=== PATIENT | male | born 1955 | race Caucasian/White ===

== ENCOUNTER 2024-03-14 09:53 | Outpatient (AMB) | payer MEDICARE, SELFPAY ==
[2024-03-14 10:09] VITALS: BP 134/78; PULSE 75; O2SAT 98; BMI 28.1
--- NOTE | 2024-03-14 10:09 | A.OFFPC_ITS ---
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 PMHx: HLD, OA, Vit D deficiency, Basal Cell CA, Squamous cell CA skin Goes to [facility] in [place] Migraines, BPH (last?PSA?3?days?ago?was?3.0) Urology at [facility], Tubular Adenoma Colon last Colonoscopy a few yrs ago and due in about 2 yrs., Diverticulosis. SurgHx:??Excision?of?nevus?on?face,?Mohs?surgery?on?nose,?inguinal?hernia?repair ?bilateral?with?mesh,?vasectomy,?R hip?replacement FHx:: Dad: CAD. Brother Seizure d.o., Sister DM, CAD. Brother bladder CA. Sister vocal cord CA SocHx: Quit cigs 30 yrs ago. EtOH None. No drugs PFSH Medical History (Updated 03/14/24 @ 10:50 by Julien Seo) Arthritis Prostate troubles Skin cancer Surgical History (Updated 03/14/24 @ 10:22 by Jennifer Angulo [facility]) History of hip surgery S/P hernia surgery Family History (Updated 05/06/24 @ 10:26 by Jennifer [facility] Mother Lung cancer Father High blood pressure High cholesterol Cardiovascular disease Sister High blood pressure High cholesterol Diabetes Cardiovascular disease Thyroid disease Alcoholism Lung cancer Vocal cord cancer Brother Bladder cancer Social History Household Members: Spouse Household Members Other:: mother in law Both parents involved: No Caregiver staying overnight: No Housing: House Are you a primary primary care provider to a significant other at home: No Do you presently have visiting nurse or other home services: No Alcohol intake: never Patient Tobacco Use Status: Former Tobacco user Tobacco use type: Cigarette e-Cigarette/Vaping Use: Never Used Special tenzin needs: Yes service: No Current occupational status: retired Cognitive needs: No Hearing needs: No Vision needs: Yes (Patient wears glasses) Questionnaire PHQ-9 Over the last 2 weeks, how often have you been bothered by any of the following problems? 1. Little interest or pleasure in doing things: not at all 2. Feeling down, depressed, or hopeless: not at all 3. Trouble falling or staying asleep, or sleeping too much: not at all 4. Feeling tired or having little energy: not at all 5. Poor appetite or overeating: not at all 6. Feeling bad about yourself - or that you are a failure or have let yourself or your family down: not at all 7. Trouble concentrating on things, such as reading the newspaper or watching television: not at all 8. Moving or speaking so slowly that other people could have noticed. Or the opposite - being so fidgety or restless that you have been moving around a lot more than usual: not at all 9. Thoughts that you would be better off or of hurting yourself in some way: not at all Total score: 0 Depression Screening Interpretation: Negative Depression Screening Done: Yes 80822 - PHQ-9 Billing: Yes Source: Developed by Drs. Darien Schwartz, Michela Napier, Hu Moreland and colleagues, with an educational kamron from [employer]. Thrive Questionnaire Date Thrive assessed: 03/14/24 I am a: Patient What is your living situation today?: I have a steady place to live Within the past 12 months, did the food you bought not last and you didn't have the money to get more?: Never true Within the past 12 months, did you worry whether your food would run out before you got money to buy more?: Never true Do you have trouble paying for medicines?: No Do you have trouble getting transportation to medical appointments?: No Do you have trouble paying your heating and electricity bill?: No Do you have trouble taking care of your child, family member or friend?: No Do you have trouble with day-to-day activities such as bathing, preparing meals, shopping, managing finances, etc.?: No Are you currently unemployed and looking for a job?: No Are you interested in more education?: No THRIVE Score: 0 AUDIT C Alcohol Use Questionnaire (AUDIT-C) 1. How often do you have a drink containing alcohol?: Never 3. How often do you have six or more drinks on one occasion?: Never Total Score: 0 Review of Systems Const Denies chills, Denies fatigue, Denies fever(s), Denies headache(s) and Denies weakness ENT Details: Difficulty swallowing cold food Denies dizziness and Denies headache(s) Card Denies chest pain, Denies lightheadedness, Denies dyspnea and Denies other (Palpitations) Resp Denies cough, Denies dyspnea, Denies wheezing and Denies other ( shortness of breath) Musc Denies numbness and Denies tingling Neuro Denies dizziness, Denies headache(s), Denies numbness, Denies tingling, Denies paresthesias and Denies weakness Psych Denies anxiety and Denies depression Endo Denies fatigue Aller/Immun Denies wheezing Physical exam (Primary Care) BMI result Body Mass Index 28.1 Tobacco/Smoking Status: Tobacco use Status Tobacco use date assessed 03/14/24 03/14/24 10:19 Patient Tobacco Use Status Former Tobacco user 03/14/24 10:19 Tobacco use type Cigarette 03/14/24 10:19 e-Cigarette/Vaping Use Never Used 03/14/24 10:19 PHQ-9: PHQ-9 Score PHQ-9: Total score 0 03/14/24 10:19 Depression Screening Interpretation: Negative Thrive Assessment: Date of Thrive Assessment Date Thrive assessed 03/14/24 03/14/24 10:19 Const General: no acute distress and well developed Nutritional Appearance: well nourished Orientation/consciousness: patient oriented x3 HENMT Head: Yes normocephalic and Yes atraumatic Eyes General: appearance normal, both eyes and all related structures Pupils: Equal, round and reactive pupils present EOM: EOMs intact bilaterally Resp Effort & Inspection: normal respiratory effort Auscultation: clear to auscultation bilaterally Cardio Rate: regular rate Rhythm: regular rhythm Heart sounds: S1 normal heart sound present, S2 normal heart sound present, no gallops, no murmurs and no rubs Neuro General: patient oriented x3 and gait normal Cranial nerves: Yes Equal, round and reactive pupils present Psych Affect: normal affect Assessment and Plan Assessment & Plan (1) Difficulty swallowing: Code(s): R13.10 - Dysphagia, unspecified (2) Hyperlipidemia: Code(s): E78.5 - Hyperlipidemia, unspecified (3) Vitamin D deficiency: Code(s): E55.9 - Vitamin D deficiency, unspecified (4) Migraines: Code(s): G43.909 - Migraine, unspecified, not intractable, without status migrainosus (5) History of skin cancer: Code(s): Z85.828 - Personal history of other malignant neoplasm of skin (6) Lump on finger: Code(s): R22.30 - Localized swelling, mass and lump, unspecified upper limb (7) BPH (benign prostatic hyperplasia): Code(s): N40.0 - Benign prostatic hyperplasia without lower urinary tract symptoms (8) Tubular adenoma of colon: Code(s): D12.6 - Benign neoplasm of colon, unspecified (9) Diverticulitis: Code(s): K57.92 - Diverticulitis of intestine, part unspecified, without perforation or abscess without bleeding Orders: Orders Complete Blood Count Auto Diff Today Z00.00 - Encounter for general adult medical examination without abnormal findings TSH reflex Free T4 Today Z00.00 - Encounter for general adult medical examinat ion without abnormal findings UA and rflx microscopic Today Z00.00 - Encounter for general adult medical examination without abnormal findings Vitamin D 25-OH Total Today E55.9 - Vitamin D deficiency, unspecified [place] barium swallow modified Today R13.10 - Dysphagia, unspecified XR hand LT min 3V Today R22.30 - Localized swelling, mass and lump, unspecified upper limb Comprehensive [place]. Panel Fast Today Z00.00 - Encounter for general adult medical examination without abnormal findings Microalbumin, Random (w Creat) Today I10 - Essential (primary) hypertension Lipid Panel Today Z00.00 - Encounter for general adult medical examination without abnormal findings Prostate Specific Antigen Scr Today Z12.5 - Encounter for screening for malignant neoplasm of prostate Coding Level of Care Code New Pt Level 4 (52058) Diagnoses Difficulty swallowing R13.10 Hyperlipidemia E78.5 Vitamin D deficiency E55.9 Migraines G43.909 History of skin cancer Z85.828 Lump on finger R22.30 BPH (benign prostatic hyperplasia) N40.0 Tubular adenoma of colon D12.6 Diverticulitis K57.92
== END 2024-03-14 10:56 | disposition home or self-care (01) ==
PROVIDERS: PCP Family Medicine; Visit Provider Family Medicine
DX: R13.10 Dysphagia, unspecified (principal); E78.5 Hyperlipidemia, unspecified; E55.9 Vitamin D deficiency, unspecified; G43.909 Migraine, unspecified, not intractable, without status migrainosus; Z85.828 Personal history of other malignant neoplasm of skin; R22.30 Localized swelling, mass and lump, unspecified upper limb; N40.0 Benign prostatic hyperplasia without lower urinary tract symptoms; D12.6 Benign neoplasm of colon, unspecified; K57.92 Diverticulitis of intestine, part unspecified, without perforation or abscess without bleeding
CPT/HCPCS: 99204

== ENCOUNTER 2024-06-16 08:29 | Outpatient (AMB) | payer MEDICARE, SELFPAY ==
--- NOTE | 2024-06-16 08:47 | A.OFFPC_ITS ---
Vital Signs 06/16/24 08:54 Height 6 ft Weight 203 lb BMI 27.5 BP 106/60 Blood Pressure Location Rt brachial Position Sitting Respiration 18 Pulse 58 Pulse Source Pulse Oximeter Temp 98 F Temp Source Tympanic Pulse Oximetry (%) 95 Oxygen Delivery Method Room Air Intake Visit Reasons: Extended exam with f/u labs and health maint Intake Note: annual exam lab follow up Allergies codeine Adverse Reaction (Mild, Verified 06/16/24 08:49) Vomiting Tobacco use date assessed: 06/16/24 Fall risk assessment: No Falls in past year Dental Screening Dental Screen Date: 06/16/24 Did you have a dental visit in the last 12 months?: Yes Did you have a dental problem in the last 6 months where you did not have access to dental care?: No Was dental information given to patient?: Patient has dentist HPI Extended exam with f/u labs and health maint HPI Details 69 y/o male presents for an extended exa m with f/u labs and health maintenance. Labs drawn 03/21/24. Reviewed labs with pt. TC 204. Triglycerides 100. HDL 49. LDL 137. Had complaints of difficulty swallowing. 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 [facility] Medical History (Updated 06/16/24 @ 09:28 by César Gordon MD) Arthritis Prostate troubles Skin cancer Surgical History (Updated 03/14/24 @ 10:22 by Jennifer Angulo CMA) History of hip surgery S/P hernia surgery Family History (Updated 03/14/24 @ 10:26 by Jennifer Angulo CMA) Mother Lung cancer Father High blood pressure High cholesterol Cardiovascular disease Sister High blood pressure High cholesterol Diabetes Cardiovascular disease Thyroid disease Alcoholism Lung cancer Vocal cord cancer Brother Bladder cancer Social History (Updated 06/16/24 @ 08:50 by Laura Farris) Household Members: Spouse Household Members Other:: mother in law Both parents involved: No Caregiver staying overnight: No Housing: House Are you a primary care associate to a significant other at home: No Do you presently have visiting nurse or other home services: No Alcohol intake: never Patient Tobacco Use Status: Former Tobacco user Tobacco use type: Cigarette e-Cigarette/Vaping Use: Never Used Special tenzin needs: Yes service: No Current occupational status: retired Cognitive needs: No Hearing needs: No Vision needs: Yes (Patient wears glasses) Questionnaire PHQ-9 Over the last 2 weeks, how often have you been bothered by any of the following problems? 1. Little interest or pleasure in doing things: not at all 2. Feeling down, depressed, or hopeless: not at all 3. Trouble falling or staying asleep, or sleeping too much: not at all 4. Feeling tired or having little energy: not at all 5. Poor appetite or overeating: not at all 6. Feeling bad about yourself - or that you are a failure or have let yourself or your family down: not at all 7. Trouble concentrating on things, such as reading the newspaper or watching television: not at all 8. Moving or speaking so slowly that other people could have noticed. Or the opposite - being so fidgety or restless that you have been moving around a lot more than usual: not at all 9. Thoughts that you would be better off or of hurting yourself in some way: not at all Total score: 0 Depression Screening Interpretation: Negative Depression Screening Done: Yes 08555 - PHQ-9 Billing: Yes Source: Developed by Drs. Darien Schwartz, Michela Napier, Hu Moreland and colleagues, with an educational kamron from [employer]. Thrive Questionnaire Date Thrive assessed: 06/16/24 I am a: Patient What is your living situation today?: I have a steady place to live Within the past 12 months, did the food you bought not last and you didn't have the money to get more?: Never true Within the past 12 months, did you worry whether your food would run out before you got money to buy more?: Never true Do you have trouble paying for medicines?: No Do you have trouble getting transportation to medical appointments?: No Do you have trouble paying your heating and electricity bill?: No Do you have trouble taking care of your child, family member or friend?: No Do you have trouble with day-to-day activities such as bathing, preparing meals, shopping, managing finances, etc.?: No Are you currently unemployed and looking for a job?: No Are you interested in more education?: No Please select the resources that you would like help with: None Currently or been in a relationship where the following occur: No concerns reported THRIVE Score: 0 AUDIT C Alcohol Use Questionnaire (AUDIT-C) 1. How often do you have a drink containing alcohol?: Never 3. How often do you have six or more drinks on one occasion?: Never Total Score: 0 Score Reviewed/Action Taken: Yes MEENA-7 AMB Questionnaire MEENA-7 Date MEENA - 7 assessed: 06/16/24 Feeling nervous, anxious, or on edge: 0 = Not at all Not being able to stop or control worryin = Not at all Worrying too much about different things: 0 = Not at all Trouble relaxin = Not at all Being so restless that it is hard to sit still: 0 = Not at all Becoming easily annoyed or irritable: 0 = Not at all Feeling afraid as if something awful might happen: 0 = Not at all Total MEENA-7 score (0-4 normal; 5-9 mild; 10-14 moderate; 15-21 severe): 0 Source: Developed by Drs. Darien Schwartz, Michela Napier, Hu Moreland and colleagues, with an educational kamron from [employer]. MEENA-7 Assessment Billing MEENA-7 Assessment Tool: MEENA-7 Assessment 32786 Review of Systems Const Denies chills, Denies fatigue, Denies fever(s), Denies headache(s) and Denies we akness Eyes Denies change in vision ENT Denies dizziness, Denies headache(s), Denies hearing loss, Denies nasal congestion, Denies sinus pain, Denies sinus pressure and Denies sore throat Card Denies chest pain, Denies lightheadedness, Denies dyspnea and Denies other (palpitations) Resp Denies cough, Denies dyspnea and Denies wheezing GI Denies abdominal pain, Denies melena, Denies hematochezia, Denies change in bowel habits, Denies dyspepsia and Denies nausea Denies hematuria and Denies dysuria Musc Denies abnormal gait, Denies myalgias, Denies arthralgias, Denies numbness and Denies tingling Skin/Breast Denies rash, Denies unusual bruising and Denies wounds Neuro Denies abnormal gait, Denies dizziness, Denies headache(s), Denies memory loss, Denies numbness, Denies Sensory deficit (Neuro), Denies tingling and Denies weakness Psych Denies anxiety, Denies depression and Denies memory loss Endo Denies cold intolerance, Denies fatigue, Denies heat intolerance, Denies polydipsia and Denies polyuria Cm/Lymph Denies easy bleeding and Denies easy bruising Aller/Immun Denies wheezing Physical exam (Primary Care) Vital Signs: Last Vital Signs Temp 98 F 06/16/24 08:54 Pulse 58 06/16/24 08:54 Resp 18 06/16/24 08:54 BP 106/60 06/16/24 08:54 Pulse Ox 95 06/16/24 08:54 Oxygen Delivery Method Room Air 06/16/24 08:54 BMI result Body Mass Index 27.5 Tobacco/Smoking Status: Tobacco use Status Tobacco use date assessed 06/16/24 06/16/24 08:53 Patient Tobacco Use Status Former Tobacco user 06/16/24 08:50 Tobacco use type Cigarette 06/16/24 08:50 e-Cigarette/Vaping Use Never Used 06/16/24 08:50 PHQ-9: PHQ-9 Score PHQ-9: Total score 0 06/16/24 08:55 Depression Screening Interpretation: Negative Thrive Assessment: Date of Thrive Assessment Date Thrive assessed 06/16/24 06/16/24 08:53 Currently or been in a relationship where the following occur: No concerns reported Const General: no acute distress, well developed, alert and awake Nutritional Appearance: well nourished Orientation/consciousness: patient oriented x3 HENMT Head: Yes normocephalic and Yes atraumatic Ears: hearing grossly normal bilaterally and TM's normal bilaterally General nose exam: Normal external nose present and Normal nares present Mouth: Normal oral and palatal mucosa present and moist mucous membranes Teeth and gingiva: dentition normal Throat: Yes posterior oropharynx normal Eyes General: appearance normal, both eyes and all related structures Pupils: Equal, round and reactive pupils present and Pupil accommodation reflex normal EOM: EOMs intact bilaterally Neck Neck: Yes normal visual inspection, Yes no lymphadenopathy and Yes trachea midline Thyroid: Thyroid normal Carotids: no bruits Lymphatic: no lymphadenopathy noted Chest Chest palpation & inspection: normal inspection of the chest Resp Effort & Inspection: normal respiratory effort Auscultation: clear to auscultation bilaterally Cardio Rate: regular rate Rhythm: regular rhythm Heart sounds: S1 normal heart sound present, S2 normal heart sound present, no gallops, no murmurs and no rubs Bruits: no abdominal aortic bruits and no carotid bruits GI Palpation (GI): No Abdominal aortic bruit present, Soft to palpation, nontender, No hepatosplenomegaly present and No Rebound tenderness present Auscultation: normal bowel sounds General: Yes no CVA tenderness Back/Spine/Pelvis Back: no CVA tenderness Cervical Spine: cervical ROM normal and No Cervical spine tenderness Thoracic/Lumbar Spine: thoraco-lumbar ROM normal, No pain with thoraco-lumbar ROM, No thoracic spinal tenderness and No lumbar spinal tenderness Skin Lesions: no lesions Rashes: no rashes Trauma: no lacerations or abrasions Wounds: no wounds Nails: normal Neuro General: patient oriented x3 Cranial nerves: Yes Equal, round and reactive pupils present Cognition (Neuro): normal cognition Gait exam (Neuro): Normal gait present Motor exam (neuro): 5/5 motor strength present throughout Sensory Exam: No Sensory deficit (Neuro) Deep tendon reflexes (DTR's): Right patellar reflex intensity grade: 2+ and Left patellar reflex intensity grade: 2+ Extrem General: Yes normal to inspection and No edema Psych Appearance: grossly normal Affect: normal affect Attitude: cooperative Thought process: Normal thought process present Assessment and Plan Assessment & Plan (1) Elevated LDL cholesterol level: Code(s): E78.00 - Pure hypercholesterolemia, unspecified Plan: Elevated?LDL?cholesterol.??Goal?is?less?than?100 He?will?work?on?lifestyle?changes.??Says?he?is?already?eating?a?diet?low?in?satu rated?fats?and?cholesterol?but?has?not?been?exercising?much. Continue?diet?low?in?saturated?fats?and?cholesterol?and?try?to?increase?activity ?and?exercise Will?repeat?in?a?few?months?and?discuss?with?patient (2) Lump on finger: Code(s): R22.30 - Localized swelling, mass and lump, unspecified upper limb Plan: Lump?on?3rd?finger?of?left?hand - patient?had?x- ray?but?I?do?not?have?the?results Will?request?results?and?call?patient?of?action?is?required.??Otherwise?we?can?f ollow-up?at?his?next?visit (3) Difficulty swallowing: Code(s): R13.10 - Dysphagia, unspecified Plan: Ongoing?difficulty?swallowing?certain?liquids Modified?barium?swall ow?cervical?shows?osteophyte?which?is?likely?causing?mass?effect?on?esophagus Referred?to?ENT (4) Screening for colon cancer: Code(s): Z12.11 - Encounter for screening for malignant neoplasm of colon Plan: Patient?says?he?has?drafter electrical in?[place] Unsure?when?or?exactly?where. He?will?send?us?a?message?through?the?portal?and?we?can?request?the?results (5) Screening for prostate cancer: Code(s): Z12.5 - Encounter for screening for malignant neoplasm of prostate Plan: PSA?at?upper?range?of?normal He?has?a?urologist?who?feels?that?his?prostate?appears?normal?for?age We?can?continue?to?monitor?and?he?can?follow-up?with?Urology (6) Adult general medical exam: Code(s): Z00.00 - Encounter for general adult medical examination without abnormal findings Plan: 69-year-old?male?presents?for?an?extended?exam Encouraged?healthy?diet?active?lifestyle?and?exercise Orders: Orders Lipid Panel Today E78.00 - Pure hypercholesterolemia, unspecified, Z00.00 - Encounter for general adult medical examination without abnormal findings Comprehensive [place]. Panel Fast Today E78.00 - Pure hypercholesterolemia, unspecified, Z00.00 - Encounter for general adult medical examination without abnormal findings Referrals Ear/Nose/Throat Referral M25.78 - Osteophyte, vertebrae, R13.10 - Dysphagia, unspecified Coding Level of Care Code Est Pt Level 4 (60945) Diagnoses Elevated LDL cholesterol level E78.00 Lump on finger R22.30 Difficulty swallowing R13.10 Screening for colon cancer Z12.11 Screening for prostate cancer Z12.5 Adult general medical exam Z00.00 Additional Codes MEENA-7 Assessment Billing - MEENA-7 Assessment Tool: MEENA-7 Assessment 28220 ([id number])
[2024-06-16 08:54] VITALS: BP 106/60; PULSE 58; RESP 18; TEMP 36.6; O2SAT 95; BMI 27.5
== END 2024-06-16 09:30 | disposition home or self-care (01) ==
PROVIDERS: PCP Family Medicine; Visit Provider Family Medicine
DX: Z00.00 Encounter for general adult medical examination without abnormal findings (principal); E78.00 Pure hypercholesterolemia, unspecified; R22.30 Localized swelling, mass and lump, unspecified upper limb; R13.10 Dysphagia, unspecified; Z12.11 Encounter for screening for malignant neoplasm of colon; Z12.5 Encounter for screening for malignant neoplasm of prostate
CPT/HCPCS: 99397

== ENCOUNTER 2024-09-13 08:11 | Outpatient (REF) | payer MEDICARE, SELFPAY ==
[2024-09-13 11:13] LABS: MANUAL DIFF FLAG NO
[2024-09-13 11:21] LABS: Basophils Absolute Auto 0.1 X10*3/uL (0.0-0.2); Basophils Percent Auto 1.3 % (0-2); Eosinophils Absolute Auto 0.4 X10*3/uL (0.0-0.4); Eosinophils Percent Auto 7.6 % (0-4); Hematocrit 48.1 % (42.0-52.0); Hemoglobin 15.5 g/dl (14.0-18.0); Imm Gran Abs Auto 0.02 X10*3/uL (0.00-0.03); Imm Gran Pct Auto 0.4 % (0.0-0.4); Lymphocytes Absolute Auto 1.6 X10*3/uL (1.2-4.9); Lymphocytes Percent Auto 33.1 % (20-40); Mean Corpuscular HGB Conc 32.2 g/dl (31.0-36.0); Mean Corpuscular Hemoglobin 28.2 pg (27.0-33.0); Mean Corpuscular Volume 87.5 fL (80.0-98.0); Mean Platelet Volume 10.8 fL (9.4-12.4); Monocytes Absolute Auto 0.6 X10*3/uL (0.1-1.2); Monocytes Percent Auto 12.7 % (2-11); Neutrophils Absolute Auto 2.1 x10*3/uL (2.0-8.3); Neutrophils Percent Auto 44.9 % (45-73); Platelet Count 214 X10*3/uL (160-400); Red Cell Distribution Width 13.8 % (11.0-16.0); White Blood Count 4.7 X10*3/uL (4.8-10.8)
[2024-09-13 11:29] LABS: Appearance Urine Clear; Color Urine Yellow; Glucose Urine UA Negative (Negative); Leukocyte Esterase Urine Negative (Negative); Nitrite Urine Negative (Negative); PH 6.5 (5.0-9.0); Specific Gravity - Urine 1.015 (1.005-1.025); Urine Blood Negative (Negative); Urine Ketones Negative (Negative); Urine Protein Negative (Neg-Trace)
[2024-09-13 11:59] LABS: Alanine Aminotransferase 19 U/L (0-40); Albumin Level 4.1 g/dL (3.5-5.0); Alkaline Phosphatase 67 U/L (39-117); Anion Gap 12 (12-20); Aspartate Amino Transferase 28 U/L (5-37); Bilirubin Total 0.6 mg/dL (0.0-1.0); Blood Urea Nitrogen 12 mg/dL (9-16); Calcium 9.7 mg/dL (8.4-10.2); Carbon Dioxide 28 mmol/L (22-29); Chloride 105 mmol/L (96-108); Cholesterol 182 mg/dL (<200); Estimated Glomerular Filt Rate > 60; Glucose Fasting 101 mg/dL (60-99); HDL Cholesterol 52 mg/dL (>40); LDL Cholesterol Calculated 119 mg/dL (<100); Potassium 4.8 mmol/L (3.3-5.1); Sodium 140 mmol/L (135-145); Total Protein 6.9 g/dL (6.5-8.0); Triglycerides 57 mg/dL (<150)
[2024-09-13 12:17] LABS: TSH reflex Free T4 1.79 uIU/mL (0.32-4.0); Vitamin D 25-OH Total 67.6 ng/mL (>30)
[2024-09-13 14:03] LABS: Microalbumin Urine < 5.0 mg/L
== END 2024-09-13 08:12 | disposition home or self-care (01) ==
LOC: HO.WFDLDS 08:11
PROVIDERS: Visit Provider Family Medicine
DX: Z00.00 Encounter for general adult medical examination without abnormal findings (principal); Z12.5 Encounter for screening for malignant neoplasm of prostate; E55.9 Vitamin D deficiency, unspecified; I10 Essential (primary) hypertension
CPT/HCPCS: 36415; 80053; 80061; 81003; 82043; 82306; 82570; 84153; 84443; 85025

== ENCOUNTER 2024-09-20 08:37 | Outpatient (AMB) | payer MEDICARE, SELFPAY ==
--- NOTE | 2024-09-20 08:58 | MHC.PC.OV ---
Vital Signs 09/20/24 09:00 Height 6 ft Weight 205 lb 2 oz BMI 27.8 BP 112/70 Blood Pressure Location Lt brachial Position Sitting Respiration 12 Pulse 58 Pulse Source Pulse Oximeter Temp 97.8 F Temp Source Oral Pulse Oximetry (%) 97 Oxygen Delivery Method Room Air Intake Visit Reasons: f/u HLD Intake Note: follow up on labs Allergies codeine Adverse Reaction (Mild, Verified 09/20/24 08:59) Vomiting Tobacco use date assessed: 06/16/24 Dental Screening Dental Screen Date: 06/16/24 HPI f/u HLD HPI Details 69 y/o male presents to f/u HLD. Labs drawn 09/13/24. Reviewed labs with pt. Elevated fasting glucose of 101. Triglycerides 57. TC 182. LDL 119. HDL 52. PSA 3.40. PFSH Medical History (Updated 09/20/24 @ 09:21 by Julien Seo) Arthritis Prostate troubles Skin cancer Surgical History (Updated 03/14/24 @ 10:22 by Jennifer Angulo CMA) History of hip surgery S/P hernia surgery Family History (Updated 03/14/24 @ 10:26 by Jennifer Angulo CMA) Mother Lung cancer Father High blood pressure High cholesterol Cardiovascular disease Sister High blood pressure High cholesterol Diabetes Cardiovascular disease Thyroid disease Alcoholism Lung cancer Vocal cord cancer Brother Bladder cancer Social History (Updated 06/16/24 @ 08:50 by Laura Farris [facility]) Household Members: Spouse Household Members Other:: mother in law Both parents involved: No Caregiver staying overnight: No Housing: House Are you a primary home care scheduler to a significant other at home: No Do you presently have visiting nurse or other home services: No Alcohol intake: never Patient Tobacco Use Status: Former Tobacco user Tobacco use type: Cigarette e-Cigarette/Vaping Use: Never Used Special tenzin needs: Yes service: No Current occupational status: retired Cognitive needs: No Hearing needs: No Vision needs: Yes (Patient wears glasses) Questionnaire PHQ-9 Over the last 2 weeks, how often have you been bothered by any of the following problems? 1. Little interest or pleasure in doing things: not at all 2. Feeling down, depressed, or hopeless: not at all 3. Trouble falling or staying asleep, or sleeping too much: not at all 4. Feeling tired or having little energy: not at all 5. Poor appetite or overeating: not at all 6. Feeling bad about yourself - or that you are a failure or have let yourself or your family down: not at all 7. Trouble concentrating on things, such as reading the newspaper or watching television: not at all 8. Moving or speaking so slowly that other people could have noticed. Or the opposite - being so fidgety or restless that you have been moving around a lot more than usual: not at all 9. Thoughts that you would be better off or of hurting yourself in some way: not at all Total score: 0 Source: Developed by Drs. Darien Schwartz, Michela Napier, Hu Moreland and colleagues, with an educational kamron from [employer]. Thrive Questionnaire Date Thrive assessed: 09/17/24 I am a: Patient What is your living situation today?: I have a steady place to live Within the past 12 months, did the food you bought not last and you didn't have the money to get more?: Never true Within the past 12 months, did you worry whether your food would run out before you got money to buy more?: Never true Do you have trouble paying for medicines?: No Do you have trouble getting transportation to medical appointments?: No Do you have trouble paying your heating and electricity bill?: No Do you have trouble taking care of your child, family member or friend?: No Do you have trouble with day-to-day activities such as bathing, preparing meals, shopping, managing finances, etc.?: No Are you currently unemployed and looking for a job?: No Are you interested in more education?: No Please select the resources that you would like help with: None Currently or been in a relationship where the following occur: No concerns reported THRIVE Score: 0 AUDIT C Alcohol Use Questionnaire (AUDIT-C) 1. How often do you have a drink containing alcohol?: Never Total Score: 0 MEENA-7 AMB Questionnaire MEENA-7 Date MEENA - 7 assessed: 06/16/24 Feeling nervous, anxious, or on edge: 0 = Not at all Not being able to stop or control worryin = Not at all Worrying too much about different things: 0 = Not at all Trouble relaxin = Not at all Being so restless that it is hard to sit still: 0 = Not at all Becoming easily annoyed or irritable: 0 = Not at all Feeling afraid as if something awful might happen: 0 = Not at all Total MEENA-7 score (0-4 normal; 5-9 mild; 10-14 moderate; 15-21 severe): 0 Source: Developed by Drs. Darien Schwartz, Michela Napier, Hu Moreland and colleagues, with an educational kamron from [employer]. Review of Systems Const Denies chills, Denies fatigue, Denies fever(s), Denies headache(s) and Denies weakness ENT Denies dizziness and Denies headache(s) Card Denies dyspnea Resp Denies cough, Denies dyspnea, Denies wheezing and Denies other (shortness of breath) Musc Denies numbness and Denies tingling Neuro Denies dizziness, Denies headache(s), Denies numbness, Denies tingling and Denies weakness Psych Denies anxiety and Denies depression Endo Denies fatigue Aller/Immun Denies wheezing Physical exam (Primary Care) Vital Signs: Last Vital Signs Temp 97.8 F 09/20/24 09:00 Pulse 58 09/20/24 09:00 Resp 12 09/20/24 09:00 BP 112/70 09/20/24 09:00 Pulse Ox 97 09/20/24 09:00 Oxygen Delivery Method Room Air 09/20/24 09:00 BMI result Body Mass Index 27.8 Tobacco/Smoking Status: Tobacco use Status Tobacco use date assessed 06/16/24 09/20/24 09:01 Patient Tobacco Use Status Former Tobacco user 09/20/24 09:01 Tobacco use type Cigarette 09/20/24 09:01 e-Cigarette/Vaping Use Never Used 09/20/24 09:01 PHQ-9: PHQ-9 Score PHQ-9: Total score 0 09/20/24 09:18 Thrive Assessment: Date of Thrive Assessment Date Thrive assessed 09/17/24 09/20/24 09:01 Currently or been in a relationship where the following occur: No concerns reported Const General: well developed; No acute distress Nutritional Appearance: well nourished Orientation/consciousness: patient oriented x3 HENMT Head: Yes normocephalic and Yes atraumatic Eyes General: appearance normal, both eyes and all related structures Pupils: Equal, round and reactive pupils present EOM: EOMs intact bilaterally Resp Effort & Inspection: normal respiratory effort Auscultation: clear to auscultation bilaterally Cardio Rate: regular rate Rhythm: regular rhythm Heart sounds: S1 normal heart sound present, S2 normal heart sound present, no gallops, no murmurs and no rubs Neuro General: patient oriented x3 and gait normal Cranial nerves: Yes Equal, round and reactive pupils present Psych Affect: normal affect Coding Level of Care Code Est Pt Level 4 (58160) Diagnoses Elevated fasting glucose R73.01 Hyperlipidemia E78.5 Screening for colon cancer Z12.11 Difficulty swallowing R13.10 Assessment & Plan Assessment & Plan (1) Elevated fasting glucose: Code(s): R73.01 - Impaired fasting glucose Category: Medical Plan: Mildly?elevated?fasting?blood?sugar Encouraged?a?diet?lower?in?starches?and?about?5?lb?weight?loss?and?exercise Will?recheck?labs?as?well?as?an?A1c?with?his?next?lab?draw (2) Hyperlipidemia: Code(s): E78.5 - Hyperlipidemia, unspecified Category: Medical Plan: Lipids?are?improved?though?still?elevated Encouraged?diet?lower?in?saturated?fats?and?cholesterol Encouraged?exercise?and?another?5?lb?weight?loss (3) Screening for colon cancer: Code(s): Z12.11 - Encounter for screening for malignant neoplasm of colon Category: Medical Plan: Last?colonoscopy?in?2018?with?.??Recommended?5?year?follow-up?and?I?referred?him?back Patient?says?he?already?has?an?appointment?with?them?in?February (4) Difficulty swallowing: Code(s): R13.10 - Dysphagia, unspecified Category: Medical Plan: Patient?has?an?appointment?with?ENT?and?they?were?unable?to?see?him?sooner?than?December.??He?will?be?back?in?February?2024. Patient?says?the?globus?sensation?is?not?worsening?at?this?time. He?could?also?let?me?know?if?it?is?worsening?and?I?will?make?a?referral?down?in?[place]?while?he?is?there. Orders: Orders Lipid Panel Today E78.00 - Pure hypercholesterolemia, unspecified, Z00.00 - Encounter for general adult medical examination without abnormal findings Hemoglobin A1c Today R73.01 - Impaired fasting glucose Comprehensive [place]. Panel Fast Today R73.01 - Impaired fasting glucose, Z00.00 - Encounter for general adult medical examination without abnormal findings Referrals Gastroenterology Referral D12.6 - Benign neoplasm of colon, unspecified, Z12.11 - Encounter for screening for malignant neoplasm of colon
[2024-09-20 09:00] VITALS: BP 112/70; PULSE 58; RESP 12; TEMP 36.6; O2SAT 97; BMI 27.8
== END 2024-09-20 09:31 | disposition home or self-care (01) ==
PROVIDERS: PCP Family Medicine; Visit Provider Family Medicine
DX: R73.01 Impaired fasting glucose (principal); E78.5 Hyperlipidemia, unspecified; Z12.11 Encounter for screening for malignant neoplasm of colon; R13.10 Dysphagia, unspecified

== ENCOUNTER → 2024-09-20 08:37 | Outpatient (BNVA) | payer MEDICARE, SELFPAY | PROVIDERS: PCP Family Medicine; Visit Provider Family Medicine | DX: R73.01 Impaired fasting glucose (principal); E78.5 Hyperlipidemia, unspecified; R13.10 Dysphagia, unspecified | CPT/HCPCS: 99212 ==

== ENCOUNTER 2025-03-03 08:39 | Outpatient (REF) | payer MEDICARE, SELFPAY ==
--- OUTSIDE RECORDS SUMMARY | 2025-03-03 08:44 | XMS_ITS | Clinical Summary ---
Author Organization [facility] [address] [facility] Address [address] [place] [address] Phone Care Team Providers Care Certified Flight Instructor Name Role Phone César Gordon MD Primary Care Provider Medications polyethylene glycol (Golytely) 236-22.74-6.74 -5.86 gram solution Take 4L by mouth once for one dose. May substitue any PEG. Starting at 6PM the night before your procedure drink 1 8oz glasses at your own pace until you complete half of the gallon. Finish 2nd half of the gallon 5 hours before your procedure. 4000 mL 5 Active bisacodyL (DULCOLAX) 5 mg EC tablet Take 2 tablets by mouth right before beginning bowel prep. See instructions provided by the office 2 tablet 5 Active Encounters Date Type Department Care Team Description 03/01/2025 Telephone Gastroenterology - [address] [address] Rhina Del Valle MA Results 02/28/2025 Lab Requisition [facility] - Main Lab [address] [facility] [place] [address] Alen France MD Encounter for screening for malignant neoplasm of colon 12/26/2024 Telephone Gastroenterology - [address] [address] Suyapa Cortés MA from Last 3 Months Social History Tobacco Use Types Packs/Day Years Used Date Smoking Tobacco: Never Assessed Sex and Gender Information Value Date Recorded Sex Assigned at Not on file Legal Sex Male 2:29 AM EST Gender Identity Not on file Sexual Orientation Not on file Plan of Treatment Health Maintenance Due Date Last Done Comments DTaP,Tdap,and Td Vaccines (1 - Tdap) 1975 Pneumococcal Vaccine: 50+ Years (1 of 1 - PCV) 2006 Zoster Vaccines (1 of 2) 2006 COVID-19 Vaccine (1 - 2023-2 5 season) 2024 Abdominal Aortic Aneurysm (AAA) Screen 09/01/2024 Cholesterol Screening (Lipid Panel) 09/01/2024 Depression Screening 09/01/2024 Falls Risk Assessment 09/01/2024 Hepatitis C Screening 09/01/2024 Medicare Annual Wellness Visit 09/01/2024 Social Influencers of Health Screening 09/01/2024 Influenza Vaccine (Season Ended) 2025 RSV Immunization Adult Patients (1 - 1-dose 75+ series) 2031 Colorectal Cancer Screening: Colonoscopy 03/01/2035 03/01/2025, 02/27/2025 HIB Vaccines Aged Out No longer eligi ble based on patient's age to complete this topic HPV Vaccines Aged Out No longer eligi ble based on patient's age to complete this topic Hepatitis A Vaccines Aged Out No long er eligible based on patient's age to complete this topic Hepatitis B Vaccines Aged Out No long er eligible based on patient's age to complete this topic IPV Vaccines Aged Out No longer eligi ble based on patient's age to complete this topic MMR Vaccines Aged Out No longer eligi ble based on patient's age to complete this topic Meningococcal ACWY Vaccine Aged Out N o longer eligible based on patient's age to complete this topic Meningococcal B Vaccine Aged Out No l onger eligible based on patient's age to complete this topic RSV Immunization Patients Under 20 months Aged Out No longer eligible b ased on patient's age to complete this topic Varicella Vaccines Aged Out No longer eligible based on patient's age to complete this topic Procedures Procedure Name Priority Date/Time Associated Diagnosis Comments EXTERNAL COLONOSCOPY REPORT Routine 03/01/2025 10:45 AM EDT EXTERNAL COLONOSCOPY REPORT Routine 02/27/2025 3:00 PM EDT TISSUE EXAM Routine 02/27/2025 Encounter for screening for malignant neoplasm of colon from Last 3 Months Results * External Colonoscopy Report (03/01/2025 10:45 AM EDT) Only the most recent of2 resultswithin the time period is included. Anatomical Region Laterality Modality Endoscopy Historical Provider GI~PROCEDURE ORDERABLES F inal Result * Tissue Exam (02/27/2025) Final Diagnosis Polyps (x2 per specimen label), rectum, polypectomy: - Hyperplastic polyp(s) (two fragments). 03/01/2025 9:09 AM EDT [facility] Clinical Information High risk colon cancer surveillance: Personal history of adenomatous colonic polyp 03/01/2025 9:09 AM EDT [facility] Gross Description A. Colon, rectum polyp x 2: Labeled rectum x 2 colon polyp . Received in formalin are two soft, arredondo to red flat to polypoid tissues measuring 0.2 cm and 0.5 cm in greatest diameter, with minimal attached fecal/food debris, which are inked blue, wrapped in paper and submitted in toto in one cassette, two pieces, multiple levels. TS 03/01/2025 9:09 AM EDT [facility] Disclaimer Unless otherwise specified, all tissue is 10% NB formalin fixed and paraffin embedded. 03/01/2025 9:09 AM EDT [facility] Tissue Colon structure / Unknown 02/27/2025 02/28/2025 8:50 AM EDT Alen France MD LAB PATHOLOGY ORDERABLES Fi nal Result [facility] [address] [place] [address], from Last 3 Months Insurance [employer]UE [employer] - [place] MEDICARE ADVANTAGE Care Teams Certified Flight Instructor Relationship Specialty Start Date End Date César Gordon MD [address] [place] [address] Dr PabonyokeSAE PCP - General Family Medicine 11/24/24
--- OUTSIDE RECORDS SUMMARY | 2025-03-03 08:44 | XMS_ITS | Encounter Summary ---
Author Organization [facility] Address [address] [place] [address] Care Team Providers Care Client Engagement Specialist Name Role Phone César Gordon MD Primary Care Provider Encounter Details Date Type Department Care Team ([facility] st Contact Info) Description 02/28/2025 Lab Requisition [facility] - Main Lab [address] [facility] [place] [phone] Alen France MD [address] [facility] [address] [place] [address] Encounter for screening for malignant neoplasm of colon Social History Tobacco Use Types Packs/Day Years Used Date Smoking Tobacco: Never Assessed Sex and Gender Information Value Date Recorded Sex Assigned at Not on file Legal Sex Male 2:29 AM EST Gender Identity Not on file Sexual Orientation Not on file documented as of this encounter Plan of Treatment Not on file documented as of this encounter Procedures Procedure Name Priority Date/Time Associated Diagnosis Comments TISSUE EXAM Routine 02/27/2025 Encounter for screening for malignant neoplasm of colon documented in this encounter Results * Tissue Exam (02/27/2025) Final Diagnosis Polyps (x2 per specimen label), rectum, polypectomy: - Hyperplastic polyp(s) (two fragments). 03/01/2025 9:09 AM TRINO ASH [place] [facility] Clinical Information High risk colon cancer surveillance: Personal history of adenomatous colonic polyp 03/01/2025 9:09 AM EDT [facility] Gross Description A. Colon, rectum [...] levels. TS 03/01/2025 9:09 AM EDT [facility] Disclaimer Unless otherwise specified, all tissue is 10% NB formalin fixed and paraffin embedded. 03/01/2025 9:09 AM T [facility] Tissue Colon structure / Unknown 02/27/2025 02/28/2025 8:50 AM EDT us Alen France MD LAB PATHOLOGY ORDERABLES Fi nal Result [facility] [address] [place] [address], documented in this encounter Visit Diagnoses Diagnosis Encounter for screening for malignant neoplasm of colon documented in this encounter Care Teams Client Engagement Specialist Relationship Specialty Start Date End Date César Gordon MD [address] [place] [address] Dr Woods [place] PCP - General Family Medicine 11/24/24 documented as of this encounter
--- OUTSIDE RECORDS SUMMARY | 2025-03-03 08:44 | XMS_ITS | Encounter Summary ---
Author Organization [facility] Address [address] [place] [address] Care Team Providers Care Net Development Manager Name Role Phone César Gordon MD Primary Care Provider Reason for Visit * Reason Onset Date Comments Results 03/01/2025 Encounter Details Date Type Department Care Team (Late st Contact Info) Description 03/01/2025 Telephone Gastroenterology - [address] [place] [address] Rhina Del Valle MA Results Social History Tobacco Use Types Packs/Day Years Used Date Smoking Tobacco: Never Assessed Sex and Gender Information Value Date Recorded Sex Assigned at Not on file Legal Sex Male 2:29 AM EST Gender Identity Not on file Sexual Orientation Not on file documented as of this encounter Progress Notes * Rhina Del Valle MA - 03/01/2025 4:55 PM EDT Bx results below given. Recall entered. * Rhina Del Valle MA - 03/01/2025 4:55 PM EDT ----- Message from Sukhjinder France MD sent at 03/01/2025 12:34 PM EDT ----- Please call patient: polyp(s) HP, repeat colonoscopy in 5 years. TY documented in this encounter Plan of Treatment Not on file documented as of this encounter Visit Diagnoses Not on filedocumented in this encounter Care Teams Net Development Manager Relationship Specialty Start Date End Date César Gordon MD [address] [place] [address] Dr Chuck [place] PCP - General Family Medicine 11/24/24 documented as of this encounter
[2025-03-03 10:41] LABS: Estimated Average Glucose 108 mg/dL; Hemoglobin A1C 139.1509 umol/L; Hemoglobin A1c % 5.4 % (<6.0); Total Hemoglobin (HGBA1C) 3887.5973 umol/L
[2025-03-03 11:05] LABS: Alanine Aminotransferase 21 U/L (0-40); Albumin Level 4.2 g/dL (3.5-5.0); Alkaline Phosphatase 52 U/L (39-117); Anion Gap 9 (12-20); Aspartate Amino Transferase 26 U/L (5-37); Bilirubin Total 0.9 mg/dL (0.0-1.0); Blood Urea Nitrogen 10 mg/dL (9-16); Calcium 9.1 mg/dL (8.4-10.2); Carbon Dioxide 30 mmol/L (22-29); Chloride 105 mmol/L (96-108); Cholesterol 191 mg/dL (<200); Estimated Glomerular Filt Rate > 60; Glucose Fasting 90 mg/dL (60-99); HDL Cholesterol 54 mg/dL (>40); LDL Cholesterol Calculated 122 mg/dL (<100); Potassium 4.1 mmol/L (3.3-5.1); Sodium 140 mmol/L (135-145); Total Protein 6.9 g/dL (6.5-8.0); Triglycerides 76 mg/dL (<150)
== END 2025-03-03 08:40 | disposition home or self-care (01) ==
LOC: HO.WFDLDS 08:39
PROVIDERS: Visit Provider Family Medicine
DX: Z00.00 Encounter for general adult medical examination without abnormal findings (principal); E78.00 Pure hypercholesterolemia, unspecified; R73.01 Impaired fasting glucose
CPT/HCPCS: 36415; 80053; 80061; 83036

== ENCOUNTER 2025-03-07 08:20 | Outpatient (AMB) | payer MEDICARE, SELFPAY ==
--- NOTE | 2025-03-07 08:27 | MHC.PC.OV ---
Vital Signs 03/07/25 08:30 Height 6 ft Weight 204 lb 4 oz BMI 27.7 BP 136/77 Blood Pressure Location Rt brachial Position Sitting Respiration 13 Pulse 60 Pulse Source Pulse Oximeter Temp 96.3 F L Temp Source Temporal Artery Scan Pulse Oximetry (%) 98 Oxygen Delivery Method Room Air Intake Visit Reasons: f/u HLD, labs Intake Note: Follow up to review labs Sausage Canner Required: No Allergies codeine Adverse Reaction (Mild, Verified 03/07/25 08:28) Vomiting Medication List - Last Reconciled 03/07/25 by César Gordon MD tamsulosin 0.4 mg PO DAILY Tobacco use date assessed: 03/07/25 Fall risk assessment: No Falls in past year Last assessed Fall Risk: 03/07/25 Dental Screening Dental Screen Date: 03/07/25 Did you have a dental visit in the last 12 months?: No Did you have a dental problem in the last 6 months where you did not have access to dental care?: No Was dental information given to patient?: Patient has dentist HPI f/u HLD, labs HPI Details Patient?returns?to?follow-up?elevated?LDL?cholesterol LDL?122 Also?has?had?mildly?elevated?fasting?blood?sugar?and?A1c?measured?at?5.4% [facility] Medical History (Updated 09/20/24 @ 09:21 by Julien Seo) Arthritis Prostate troubles Skin cancer Surgical History (Updated 03/14/24 @ 10:22 by Jennifer Angulo CMA) History of hip surgery S/P hernia surgery Family History (Updated 03/14/24 @ 10:26 by Jennifer Angulo CMA) Mother Lung cancer Father High blood pressure High cholesterol Cardiovascular disease Sister High blood pressure High cholesterol Diabetes Cardiovascular disease Thyroid disease Alcoholism Lung cancer Vocal cord cancer Brother Bladder cancer Social History (Updated 06/16/24 @ 08:50 by REZA Mensah) Household Members: Spouse Household Members Other:: mother in law Both parents involved: No Caregiver staying overnight: No Housing: House Are you a primary caretaker grounds to a significant other at home: No Do you presently have visiting nurse or other home services: No Alcohol intake: never Patient Tobacco Use Status: Former Tobacco user Tobacco use type: Cigarette e-Cigarette/Vaping Use: Never Used Special tenzin needs: Yes service: No Current occupational status: retired Cognitive needs: No Hearing needs: No Vision needs: Yes (Patient wears glasses) Questionnaire PHQ-9 Over the last 2 weeks, how often have you been bothered by any of the following problems? 1. Little interest or pleasure in doing things: not at all 2. Feeling down, depressed, or hopeless: not at all 3. Trouble falling or staying asleep, or sleeping too much: not at all 4. Feeling tired or having little energy: not at all 5. Poor appetite or overeating: not at all 6. Feeling bad about yourself - or that you are a failure or have let yourself or your family down: not at all 7. Trouble concentrating on things, such as reading the newspaper or watching television: not at all 8. Moving or speaking so slowly that other people could have noticed. Or the opposite - being so fidgety or restless that you have been moving around a lot more than usual: not at all 9. Thoughts that you would be better off or of hurting yourself in some way: not at all Total score: 0 Depression Screening Interpretation: Negative Depression Screening Done: Yes 01325 - PHQ-9 Billing: Yes Source: Developed by Drs. Darien Schwartz, Michela Napier, Hu Moreland and colleagues, with an educational kamron from [employer]. Thrive Questionnaire Date Thrive assessed: 03/07/25 I am a: Patient What is your living situation today?: I have a steady place to live Within the past 12 months, did the food you bought not last and you didn't have the money to get more?: Never true Within the past 12 months, did you worry whether your food would run out before you got money to buy more?: Never true Do you have trouble paying for medicines?: No Do you have trouble getting transportation to medical appointments?: No Do you have trouble paying your heating and electricity bill?: No Do you have trouble taking care of your child, family member or friend?: No Do you have trouble with day-to-day activities such as bathing, preparing meals, shopping, managing finances, etc.?: No Are you currently unemployed and looking for a job?: No Are you interested in more education?: No Please select the resources that you would like help with: None Currently or been in a relationship where the following occur: No concerns reported THRIVE Score: 0 AUDIT C Alcohol Use Questionnaire (AUDIT-C) 1. How often do you have a drink containing alcohol?: Never 3. How often do you have six or more drinks on one occasion?: Never Total Score: 0 MEENA-7 AMB Questionnaire MEENA-7 Date MEENA - 7 assessed: 03/07/25 Feeling nervous, anxious, or on edge: 0 = Not at all Not being able to stop or control worryin = Not at all Worrying too much about different things: 0 = Not at all Trouble relaxin = Not at all Being so restless that it is hard to sit still: 0 = Not at all Becoming easily annoyed or irritable: 0 = Not at all Feeling afraid as if something awful might happen: 0 = Not at all Total MEENA-7 score (0-4 normal; 5-9 mild; 10-14 moderate; 15-21 severe): 0 Source: Developed by Drs. Darien Schwartz, Michela Napier, Hu Moreland and colleagues, with an educational kamron from [employer]. MEENA-7 Assessment Billing MEENA-7 Assessment Tool: MEENA-7 Assessment 62585 Review of Systems Const Denies chills, Denies fatigue, Denies fever(s), Denies headache(s) and Denies weakness ENT Denies dizziness and Denies headache(s) Card Denies chest pain, Denies lightheadedness, Denies dyspnea and Denies other (Palpitations) Resp Denies cough, Denies dyspnea, Denies wheezing and Denies other ( shortness of breath) Musc Denies numbness and Denies tingling Neuro Denies dizziness, Denies headache(s), Denies numbness, Denies tingling, Denies paresthesias and Denies weakness Psych Denies anxiety and Denies depression Endo Denies fatigue Aller/Immun Denies wheezing Physical exam (Primary Care) Vital Signs: Last Vital Signs Temp 96.3 F L 03/07/25 08:30 Pulse 60 03/07/25 08:30 Resp 13 03/07/25 08:30 BP 136/77 03/07/25 08:30 Pulse Ox 98 03/07/25 08:30 Oxygen Delivery Method Room Air 03/07/25 08:30 BMI result Body Mass Index 27.7 Tobacco/Smoking Status: Tobacco use Status Tobacco use date assessed 03/07/25 03/07/25 08:32 Patient Tobacco Use Status Former Tobacco user 03/07/25 08:32 Tobacco use type Cigarette 03/07/25 08:32 e-Cigarette/Vaping Use Never Used 03/07/25 08:32 PHQ-9: PHQ-9 Score PHQ-9: Total score 0 03/07/25 08:32 Depression Screening Interpretation: Negative Thrive Assessment: Date of Thrive Assessment Date Thrive assessed 03/07/25 03/07/25 08:32 Currently or been in a relationship where the following occur: No concerns reported Const General: no acute distress and well developed Nutritional Appearance: well nourished Orientation/consciousness: patient oriented x3 HENMT Head: Yes normocephalic and Yes atraumatic Eyes General: appearance normal, both eyes and all related structures Pupils: Equal, round and reactive pupils present EOM: EOMs intact bilaterally Resp Effort & Inspection: normal respiratory effort Auscultation: clear to auscultation bilaterally Cardio Rate: regular rate Rhythm: regular rhythm Heart sounds: S1 normal heart sound present, S2 normal heart sound present, no gallops, no murmurs and no rubs Neuro General: patient oriented x3 and gait normal Cranial nerves: Yes Equal, round and reactive pupils present Psych Affect: normal affect Coding Level of Care Code Est Pt Level 3 (87548) Diagnoses Hyperlipidemia E78.5 Elevated fasting glucose R73.01 Additional Codes MEENA-7 Assessment Billing - MEENA-7 Assessment Tool: MEENA-7 Assessment 63197 ([id number]) PHQ-9 - 26187 - PHQ-9 Billing: Yes ([id number]) Assessment & Plan Assessment & Plan (1) Hyperlipidemia: Code(s): E78.5 - Hyperlipidemia, unspecified Category: Medical (2) Elevated fasting glucose: Code(s): R73.01 - Impaired fasting glucose Category: Medical Plan LDL?cholesterol?remains?elevated Trials?Zetia We?are?going?to?diet?lower?in?saturated?fats?and?cholesterol Encouraged?to?5-10?lb?weight?loss?exercise A1c?in?upper?range?of?normal Encouraged?exercise Encouraged?a?diet?lower?in?sugars?and?starches Orders: Orders Comprehensive [place]. Panel Fast Today E78.00 - Pure hypercholesterolemia, unspecified, Z00.00 - Encounter for general adult medical examination without abnormal findings Lipid Panel Today E78.00 - Pure hypercholesterolemia, unspecified, Z00.00 - Encounter for general adult medical examination without abnormal findings Medications: New ezetimibe (Zetia) 10 mg PO DAILY 90 days 90 tabs 3RF
[2025-03-07 08:30] VITALS: BP 136/77; PULSE 60; RESP 13; TEMP 35.7; O2SAT 98; BMI 27.7
--- OUTSIDE RECORDS SUMMARY | 2025-03-07 08:35 | XMS_ITS | Encounter Summary ---
Author Organization [facility] Address [address] [place] [address] Care Team Providers Care Site Project Manager Name Role Phone César Gordon MD Primary Care Provider Encounter Details Date Type Department Care Team ([facility] st Contact Info) Description 02/28/2025 Lab Requisition [facility] - Main Lab [address] [facility] [place] [phone] Alen France MD [address] [facility] [address] [place] [address] Encounter for screening for malignant neoplasm of [...] fragments). 03/01/2025 9:09 AM TRINO ASH [place] ([facility]) [facility] Clinical Information High risk colon cancer surveillance: Personal history of adenomatous colonic polyp 03/01/2025 9:09 AM EDT [facility] Gross Description A. Colon, rectum [...] multiple levels. TS 03/01/2025 9:09 AM EDT [facility] Disclaimer Unless otherwise specified, all tissue is 10% NB formalin fixed and paraffin embedded. 03/01/2025 9:09 AM T [facility] Tissue Colon structure / Unknown 02/27/2025 02/28/2025 8:50 AM EDT us Alen France MD LAB PATHOLOGY ORDERABLES Fi nal Result [facility] [address] [place] [address], documented in this encounter Visit Diagnoses Diagnosis Encounter for screening for malignant neoplasm of colon documented in this encounter Care Teams Site Project Manager Relationship Specialty Start Date End Date César Gordon MD [address] [place] [address] Dr Woods [place] PCP - General Family Medicine 11/24/24 documented as of this encounter
--- OUTSIDE RECORDS SUMMARY | 2025-03-07 08:35 | XMS_ITS | Clinical Summary ---
Author Organization [facility] Address [address] [place] [address] Phone Care Team Providers Care Geodetic Technician Name Role Phone César Gordon MD Primary [...] Team Description 03/01/2025 Telephone Gastroenterology - [address] [address] Rhina Del Valle [place] Results 02/28/2025 Lab Requisition [facility] - Main Lab [address] [facility] [place] [address] Alen France MD Encounter for screening for malignant neoplasm of colon 12/26/2024 Telephone Gastroenterology - [address] [address] Suyapa Cortés [place] from Last [...] polyp(s) (two fragments). 03/01/2025 9:09 AM EDT [facility] Clinical Information High risk colon cancer surveillance: Personal history of adenomatous colonic polyp 03/01/2025 9:09 AM EDT [facility] Gross Description A. Colon, rectum [...] multiple levels. TS 03/01/2025 9:09 AM EDT [facility] Disclaimer Unless otherwise specified, all tissue is 10% NB formalin fixed and paraffin embedded. 03/01/2025 9:09 AM EDT [facility] Tissue Colon structure / Unknown 02/27/2025 02/28/2025 8:50 AM EDT Alen France MD LAB PATHOLOGY ORDERABLES Fi nal Result [facility] [address] [place] [address], from Last 3 Months Insurance BLUE CROSS - [place] MEDICARE ADVANTAGE Care Teams Geodetic Technician Relationship Specialty Start Date End Date César Gordon MD [address] [place] [address] Dr P[place]SAE PCP - General Family Medicine 11/24/24
== END 2025-03-07 08:55 | disposition home or self-care (01) ==
LOC: HO.HMCFM 08:20
PROVIDERS: PCP Family Medicine; Visit Provider Family Medicine
DX: E78.5 Hyperlipidemia, unspecified (principal); R73.01 Impaired fasting glucose

== ENCOUNTER → 2025-03-07 08:20 | Outpatient (BNVA) | payer MEDICARE, SELFPAY | PROVIDERS: PCP Family Medicine; Visit Provider Family Medicine | DX: E78.00 Pure hypercholesterolemia, unspecified (principal); R73.01 Impaired fasting glucose | CPT/HCPCS: 96127; 99212 ==

== ENCOUNTER 2025-06-05 07:53 | Outpatient (REF) | payer MEDICARE, SELFPAY ==
--- OUTSIDE RECORDS SUMMARY | 2025-06-05 07:56 | XMS_ITS ---
Author Name [facility] Organization Unknown History of Medication Use Medication Directions Dispensed Refills Start Date End Date Stat us famotidine (PEPCID) 40 MG tablet Take 1 tablet (40 mg total) by mouth nightly. 04/24/2025 active ezetimibe (ZeTIA) 10 MG tablet Take 10 mg by mouth. 03/07/2025 acti ve Allergies Allergen Reaction Severity Comment Documented Date Source Statu s CODEINE OTHER (SEE COMMENTS) 04/24/2025 [facility] active Encounters Encounter Type Encounter Reason Primary Diagnosis Location Date Ambulatory Dysphonia Dysphonia Foodist 04/24/2025 Care Team Organization Name Specialty Phone Email Start Date End [facility] 04/24/2025 05/23/2025 [facility] RICKY GONCALVES Primary Care 04/24/2025 [facility] 03/27/2025
--- OUTSIDE RECORDS SUMMARY | 2025-06-05 07:56 | XMS_ITS | Encounter Summary ---
Author Organization [facility] Address [address] [place] [address] Care Team Providers Care Maintenance And Operations Supervisor Name Role Phone César Gordon MD Primary Care Provider [phone] Encounter Details Date Type Department Care Team ([facility] st Contact Info) Description 02/28/2025 Lab Requisition [facility] - Main Lab [address] [facility] [phone] Alen France MD [address] [facility] [address] [place] [address] Encounter for screening for malignant neoplasm of [...] polyp(s) (two fragments). 03/01/2025 9:09 AM TRINO AHS [place] ([facility]) [facility] Clinical Information High risk colon cancer surveillance: Personal history of adenomatous colonic polyp 03/01/2025 9:09 AM EDT [facility] Gross Description A. Colon, rectum polyp [...] multiple levels. TS 03/01/2025 9:09 AM EDT [facility] Disclaimer Unless otherwise specified, all tissue is 10% NB formalin fixed and paraffin embedded. 03/01/2025 9:09 AM T [facility] Tissue Colon structure / Unknown 02/27/2025 02/28/2025 8:50 AM EDT us Alen France MD LAB PATHOLOGY ORDERABLES Fi nal Result [facility] [address] [place] [address], documented in this encounter Visit Diagnoses Diagnosis Encounter for screening for malignant neoplasm of colon documented in this encounter Care Teams Maintenance And Operations Supervisor Relationship Specialty Start Date End Date César Gordon MD [address] [place] [address] Dr Woods [place] PCP - General Family Medicine 11/24/24 documented as of this encounter
--- OUTSIDE RECORDS SUMMARY | 2025-06-05 07:56 | XMS_ITS | Clinical Summary ---
Author Organization [facility] Address [address] [place] [address] Care Team Providers Care Coordinator Hotels Name Role Phone César Gordon MD Primary Care Provider [phone] Allergies Active Allergy Reactions Criticality Noted Date Comments Codeine Other (See Comments) Low 04/24/2025 Medications ezetimibe (ZeTIA) 10 MG tablet Take 10 mg by mouth. 03/07/2025 Active famotidine (PEPCID) 40 MG tabletIndication s:Gastroesophage al reflux disease without esophagitis Take 1 tablet (40 mg total) by mouth nightly. 30 tablet 3 04/24/2025 Active Active Problems No known active problems Encounters Date Type Department Care Team Description 04/24/2025 9:00 AM EDT Office Visit [facility] [address] [address] Jered Stephen MD Dysphonia (Primary Dx); Pharyngoesophageal dysphagia; Gastroesophageal reflux disease without esophagitis 04/24/2025 Scanned Document [facility] [address] [address] Jered Stephen MD from Last 3 Months Family History Medical History Relation Name Comments Cancer Brother Angelo Bladde r age 55 Heart disease Father Markos 1976 (age 67) Cancer Mother Lana Lung 1 999 (83 yrs) Cancer Sister Kirsty Lung a ge 55 Relation Name Status Comments Brother Angelo Alive Father Markos Alive Mother Lana Alive Sister Kirsty Alive Social History Tobacco Use Types Packs/Day Years Used Date Smoking Tobacco: Former Cigarettes Q uit: 11/09/1989 Smokeless Tobacco: Never Tobacco Cessation:Counseling Given: Not Answered Alcohol Use Standard Drinks/Week Comments Not Currently 0 (1 standard drink = 0.6 oz pur e alcohol) No alcohol use since 1994 Sex and Gender Information Value Date Recorded Sex Assigned at Male 03/27/2025 1:26 PM EDT Legal Sex Male 10:25 PM EDT Gender Identity Male 03/27/2025 1:26 PM EDT Sexual Orientation Heterosexual (straight) 03/27 1:26 PM EDT Last Filed Vital Signs Vital Sign Reading Time Taken Comments Blood Pressure - - Pulse - - Temperature - - Respiratory Rate - - Oxygen Saturation - - Inhaled Oxygen Concentration - - Weight 90.7 kg (200 lb) 04/24/2025 9:22 AM EDT Height 182.9 cm (6') 04/24/2025 9:22 AM EDT Body Mass Index 27.12 04/24/2025 9:22 AM EDT Plan of Treatment Upcoming Encounters Date Type Department Care Team (Late st Contact Info) Description 07/25/2025 7:30 AM EDT Office Visit [facility] [address], [place] [address] Jered Stephen MD [address] [place] [address] Health Maintenance Due Date Last Done Comments Hepatitis C Virus Screening 1955 DTaP/Tdap/Td Vaccines (1 - Tdap) 1975 Colonoscopy 2001 Pneumococcal Vaccines 50+ (1 of 1 - PCV) 2006 Zoster (Shingles) Vaccine (1 of 2) 2006 Abdominal Aortic Aneurysm (A AA) Screening 2021 COVID-19 Vaccine (1 - 2023-2 5 season) 2024 Influenza Vaccine 06/09/2025 RSV Vaccine 60 years and old er and Patients (1 - 1-dose 75+ series) 2031 Hepatitis B Vaccines Aged Out No long er eligible based on patient's age to complete this topic Insurance BLUE CROSS [place] MEDICARE OUT OF NETWORK Care Teams Coordinator Hotels Relationship Specialty Start Date End Date César Gordon MD [address] [place] [address] [place] [address] PCP - General Family Medicine 04/24/25
[2025-06-05 12:09] LABS: Alanine Aminotransferase 20 U/L (0-40); Albumin Level 4.3 g/dL (3.5-5.0); Alkaline Phosphatase 71 U/L (39-117); Anion Gap 12 (12-20); Aspartate Amino Transferase 27 U/L (5-37); Blood Urea Nitrogen 12 mg/dL (9-16); Calcium 8.9 mg/dL (8.4-10.2); Carbon Dioxide 29 mmol/L (22-29); Chloride 107 mmol/L (96-108); Cholesterol 158 mg/dL (<200); Estimated Glomerular Filt Rate > 60; HDL Cholesterol 48 mg/dL (>40); Potassium 4.8 mmol/L (3.3-5.1); Sodium 143 mmol/L (135-145); Total Protein 6.8 g/dL (6.5-8.0); Triglycerides 70 mg/dL (<150)
== END 2025-06-05 07:54 | disposition home or self-care (01) ==
LOC: HO.WFDLDS 07:53
PROVIDERS: Visit Provider Family Medicine
DX: Z00.00 Encounter for general adult medical examination without abnormal findings (principal); E78.00 Pure hypercholesterolemia, unspecified
CPT/HCPCS: 36415; 80053; 80061

== ENCOUNTER 2025-06-08 08:18 | Outpatient (AMB) | payer MEDICARE, SELFPAY ==
--- OUTSIDE RECORDS SUMMARY | 2025-06-08 08:27 | XMS_ITS | Encounter Summary ---
Author Organization [facility] Address [address] [place] [address] Care Team Providers Care Broadband Engineer Name Role Phone César Gordon MD Primary Care Provider Encounter Details Date Type Department Care Team ([facility] st Contact Info) Description 02/28/2025 Lab Requisition [facility] - Main Lab [address] [facility] [place] [phone] Alen France MD [address] [facility] [address] [place] [address] Encounter for screening for malignant neoplasm of [...] fragments). 03/01/2025 9:09 AM TRINO ASH [place] ([facility]) [facility] Clinical Information High risk colon cancer surveillance: Personal history of adenomatous colonic polyp 03/01/2025 9:09 AM EDT [facility] Gross Description A. Colon, rectum [...] multiple levels. TS 03/01/2025 9:09 AM EDT [facility] Disclaimer Unless otherwise specified, all tissue is 10% NB formalin fixed and paraffin embedded. 03/01/2025 9:09 AM T [facility] Tissue Colon structure / Unknown 02/27/2025 02/28/2025 8:50 AM EDT us Alen France MD LAB PATHOLOGY ORDERABLES Fi nal Result [facility] [address] [place] [address], documented in this encounter Visit Diagnoses Diagnosis Encounter for screening for malignant neoplasm of colon documented in this encounter Care Teams Broadband Engineer Relationship Specialty Start Date End Date César Gordon MD [address] [place] [address] Dr Woods [place] PCP - General Family Medicine 11/24/24 documented as of this encounter
--- OUTSIDE RECORDS SUMMARY | 2025-06-08 08:27 | XMS_ITS | Clinical Summary ---
Author Organization [facility] Address [address] [place] [address] Care Team Providers Care Guitar Maker Name Role Phone César Gordon MD Primary Care Provider [phone] Allergies Active Allergy Reactions Criticality Noted Date [...] Description 04/24/2025 9:00 AM EDT Office Visit [facility] [address] [address] Jered Stephen MD Dysphonia (Primary Dx); Pharyngoesophageal dysphagia; Gastroesophageal reflux disease without esophagitis 04/24/2025 Scanned Document [facility] [address] [phone] Jered Stephen MD from Last [...] Description 07/25/2025 7:30 AM EDT Office Visit [facility] [address], [place] [address] Jered Stephen MD [address] [place] [address] Health Maintenance Due Date Last Done [...] M[place] MEDICARE OUT OF NETWORK Care Teams Guitar Maker Relationship Specialty Start Date End Date César Gordon MD [address] [place] [address] [place] [address] PCP - General Family Medicine 04/24/25
--- NOTE | 2025-06-08 08:42 | MHC.PC.OV ---
Vital Signs 06/08/25 08:47 Height 6 ft Weight 204 lb 8 oz BMI 27.7 BP 104/60 Blood Pressure Location Lt brachial Position Sitting Respiration 14 Pulse 55 Pulse Source Pulse Oximeter Temp 97.5 F Temp Source Oral Pulse Oximetry (%) 99 Oxygen Delivery Method Room Air Intake Visit Reasons: f/u HLD, labs Intake Note: patient is scheduled to review labs with pcp Airport Baggage Screener Required: No Allergies codeine Adverse Reaction (Mild, Verified 06/08/25 08:43) Vomiting Tobacco use date assessed: 03/07/25 Dental Screening Dental Screen Date: 03/07/25 HPI f/u HLD, labs HPI Details Patient returns to follow-up hyperlipidemia, history of elevated fasting blood sugar difficulty swallowing and BPH. Had started patient on Zetia. Tolerating well. A1c at last check was 5.4% which is within range. Most recently repeat fasting blood sugar is range as well Patient has seen [facility] Urology regarding elevated PSA Refer patient to ENT for difficulty swallowing [facility] Medical History (Updated 09/20/24 @ 09:21 by Julien Seo) Arthritis Prostate troubles Skin cancer Surgical History (Updated 03/14/24 @ 10:22 by Jennifer Angulo [facility]) History of hip surgery S/P hernia surgery Family History (Updated 03/14/24 @ 10:26 by Jennifer Angulo [facility]) Mother Lung cancer Father High blood pressure High cholesterol Cardiovascular disease Sister High blood pressure High cholesterol Diabetes Cardiovascular disease Thyroid disease Alcoholism Lung cancer Vocal cord cancer Brother Bladder cancer Social History (Updated 06/16/24 @ 08:50 by Laura Farris [facility]) Household Members: Spouse Household Members Other:: mother in law Both parents involved: No Caregiver staying overnight: No Housing: House Are you a primary career technology teacher to a significant other at home: No Do you presently have visiting nurse or other home services: No Alcohol intake: never Patient Tobacco Use Status: Former Tobacco user Tobacco use type: Cigarette e-Cigarette/Vaping Use: Never Used Special tenzin needs: Yes service: No Current occupational status: retired Cognitive needs: No Hearing needs: No Vision needs: Yes (Patient wears glasses) Questionnaire Thrive Questionnaire Date Thrive assessed: 03/07/25 I am a: Patient What is your living situation today?: I have a steady place to live Within the past 12 months, did the food you bought not last and you didn't have the money to get more?: Never true Within the past 12 months, did you worry whether your food would run out before you got money to buy more?: Never true Do you have trouble paying for medicines?: No Do you have trouble getting transportation to medical appointments?: No Do you have trouble paying your heating and electricity bill?: No Do you have trouble taking care of your child, family member or friend?: No Do you have trouble with day-to-day activities such as bathing, preparing meals, shopping, managing finances, etc.?: No Are you currently unemployed and looking for a job?: No Are you interested in more education?: No Please select the resources that you would like help with: None Currently or been in a relationship where the following occur: No concerns reported THRIVE Score: 0 MEENA-7 AMB Questionnaire MEENA-7 Date MEENA - 7 assessed: 03/07/25 Source: Developed by Drs. Darien Schwartz, Michela Napier, Hu Moreland and colleagues, with an educational kamron from [employer]. Review of Systems Const Denies chills, Denies fatigue, Denies fever(s), Denies headache(s) and Denies weakness ENT Denies dizziness and Denies headache(s) Card Denies chest pain, Denies lightheadedness, Denies dyspnea and Denies other (Palpitations) Resp Denies cough, Denies dyspnea, Denies wheezing and Denies other ( shortness of breath) Musc Denies numbness and Denies tingling Neuro Denies dizziness, Denies headache(s), Denies numbness, Denies tingling, Denies paresthesias and Denies weakness Psych Denies anxiety and Denies depression Endo Denies fatigue Aller/Immun Denies wheezing Physical exam (Primary Care) Tobacco/Smoking Status: Tobacco use Status Tobacco use date assessed 03/07/25 06/08/25 08:46 Patient Tobacco Use Status Former Tobacco user 06/08/25 08:46 Tobacco use type Cigarette 06/08/25 08:46 e-Cigarette/Vaping Use Never Used 06/08/25 08:46 Thrive Assessment: Date of Thrive Assessment Date Thrive assessed 03/07/25 06/08/25 08:46 Currently or been in a relationship where the following occur: No concerns reported Const General: no acute distress and well developed Nutritional Appearance: well nourished Orientation/consciousness: patient oriented x3 HENMT Head: Yes normocephalic and Yes atraumatic Eyes General: appearance normal, both eyes and all related structures Pupils: Equal, round and reactive pupils present EOM: EOMs intact bilaterally Resp Effort & Inspection: normal respiratory effort Auscultation: clear to auscultation bilaterally Cardio Rate: regular rate Rhythm: regular rhythm Heart sounds: S1 normal heart sound present, S2 normal heart sound present, no gallops, no murmurs and no rubs Neuro General: patient oriented x3 and gait normal Cranial nerves: Yes Equal, round and reactive pupils present Psych Affect: normal affect Coding Level of Care Code Est Pt Level 4 (83642) Diagnoses Hyperlipidemia E78.5 Elevated fasting glucose R73.01 Difficulty swallowing R13.10 BPH (benign prostatic hyperplasia) N40.0 Assessment & Plan Assessment & Plan (1) Hyperlipidemia: Code(s): E78.5 - Hyperlipidemia, unspecified Category: Medical Plan: LDL cholesterol now well controlled on Zetia He is tolerating this medication Continue medication Continue working at a diet low in saturated fats and cholesterol (2) Elevated fasting glucose: Code(s): R73.01 - Impaired fasting glucose Category: Medical Plan: Fasting blood sugar remains within range A1c at last check was 5.4%. Encouraged healthy diet low in sugars and starches (3) Difficulty swallowing: Code(s): R13.10 - Dysphagia, unspecified Category: Medical Plan: Had referred patient to ENT for difficulty swallowing and osteophytes seen on barium swallow. Patient was seen at [facility] Diagnosed with silent reflux and given famotidine. He has not noticed any improvement yet but has a follow-up appointment. Continue famotidine and follow-up with ENT as recommended (4) BPH (benign prostatic hyperplasia): Code(s): N40.0 - Benign prostatic hyperplasia without lower urinary tract symptoms Category: Medical Plan: Patient was seen by [facility] neurology. They discussed repeat PSA testing versus biopsy and have opted for a 3 month follow-up for PSA
[2025-06-08 08:47] VITALS: BP 104/60; PULSE 55; RESP 14; TEMP 36.4; O2SAT 99; BMI 27.7
== END 2025-06-08 09:04 | disposition home or self-care (01) ==
LOC: HO.HMCFM 08:19
PROVIDERS: PCP Family Medicine; Visit Provider Family Medicine
DX: E78.5 Hyperlipidemia, unspecified (principal); R73.01 Impaired fasting glucose; R13.10 Dysphagia, unspecified; N40.0 Benign prostatic hyperplasia without lower urinary tract symptoms

== ENCOUNTER → 2025-06-08 08:18 | Outpatient (BNVA) | payer MEDICARE, SELFPAY | PROVIDERS: PCP Family Medicine; Visit Provider Family Medicine | DX: N40.0 Benign prostatic hyperplasia without lower urinary tract symptoms (principal); E78.5 Hyperlipidemia, unspecified; R13.10 Dysphagia, unspecified; R73.01 Impaired fasting glucose | CPT/HCPCS: 99212 ==

== ENCOUNTER 2025-08-02 07:38 | Outpatient (REF) | payer MEDICARE, SELFPAY ==
--- OUTSIDE RECORDS SUMMARY | 2025-08-02 07:44 | XMS_ITS | Clinical Summary ---
Author Organization [facility] [address] [facility] Address [address] [place] [address] Phone Care Team Providers Care Water Treatment Plant Repairer Name Role Phone César Gordon MD Primary [...] by the office 2 tablet 5 Active Social History Tobacco Use Types Packs/Day Years [...] 2006 Zoster Vaccines (1 of 2) 2006 Abdominal Aortic Aneurysm (AAA) Screen 09/01/2024 Cholesterol Screening (Lipid Panel) 09/01/2024 Falls Risk Assessment 09/01/2024 Hepatitis C Screening 09/01/2024 Medicare Annual Wellness Visit 09/01/2024 Social Influencers of Health Screening 09/01/2024 Depression Screening 11/09/2024 COVID-19 Vaccine (1 - 2023-2 5 season) 2025 Influenza Vaccine (#1) 2025 RSV Immunization Adult Patients (1 - [...] COLONOSCOPY REPORT Routine 03/01/2025 10:45 AM EDT from Last 3 Months or Most Recently Relevant to Health Maintenance Results * External Colonoscopy Report (03/01/2025 10:45 AM EDT) Anatomical Region Laterality Modality Endoscopy us Historical Provider GI~PROCEDURE ORDERABLES F inal Result from Last 3 Months or Most Recently Relevant [place] [id number] BLUE [place] - [place] MEDICARE ADVANTAGE Care Teams Water Treatment Plant Repairer Relationship Specialty Start Date End Date César Gordon MD [address] [place] [address] Dr PabonyokeSAE PCP - General Family Medicine 11/24/24
--- OUTSIDE RECORDS SUMMARY | 2025-08-02 07:44 | XMS_ITS | Clinical Summary ---
Author Organization [facility] Address [address] [place] [address] Care Team Providers Care Sustain Engineer Name Role Phone César Gordon MD Primary Care Provider [phone] Allergies Active Allergy Reactions Criticality Noted Date Comments Codeine Other (See Comments) Low 04/24/2025 Medications ezetimibe (ZeTIA) 10 MG tablet Take 10 mg by mouth. 5 Active tamsulosin (FLOMAX) 0.4 MG capsule Take 0.4 mg by mouth nightly. 5 Active famotidine (PEPCID) 40 MG tabletIndicatio ns:Gastroesopha geal reflux disease without esophagitis Take 1 tablet (40 mg total) by mouth nightly. 30 tablet 5 5 Active famotidine (PEPCID) 40 MG tabletIndicatio ns:Gastroesopha geal reflux disease without esophagitis Take 1 tablet (40 mg total) by mouth nightly. 30 tablet 3 5 07/25/20 25 Discontinued Active Problems No known active problems Encounters Date Type Department Care Team Description 07/25/2025 7:30 AM EDT Office Visit [facility] [address] [place] [address] Jered Stephen MD Dysphonia (Primary Dx); Pharyngoesophageal dysphagia; Gastroesophageal reflux disease without esophagitis from Last 3 Months Family History Medical History Relation Name Comments Cancer Brother Angelo Blae r age 55 Heart disease Father Markos 1976 (age 67) Cancer Mother Lana Lung 1 999 (83 yrs) Cancer Sister Kirsty Lung a ge 55 Relation Name Status Comments Brother Angelo Alive Father Markos Alive Mother Lana Alive Sister Kirsty Alive Social History Tobacco Use Types Packs/Day Years Used Date Smoking Tobacco: Former Cigarettes Q uit: 11/09/1989 Smokeless Tobacco: Never Alcohol Use Standard Drinks/Week Comments Not Currently [...] - - Weight 90.7 kg (200 lb) 07/25/2025 7:26 AM EDT Height 182.9 cm (6') 07/25/2025 7:26 AM EDT Body Mass Index 27.12 07/25/2025 7:26 AM EDT Plan of Treatment Health Maintenance Due Date Last Done Comments Advance Care Planning 1955 Hepatitis C Virus Screening 1955 DTaP/Tdap/Td Vaccines (1 - Tdap) 1975 Colonoscopy 2001 Pneumococcal Vaccines 50+ (1 of 1 - PCV) 2006 Zoster (Shingles) Vaccine (1 of 2) 2006 Abdominal Aortic Aneurysm (A AA) Screening 2021 Influenza Vaccine 06/09/2025 COVID-19 Vaccine (1 - 2023-2 5 season) 2025 RSV Vaccine 60 years and old er and Patients (1 - 1-dose 75+ series) 2031 Hepatitis B Vaccines Aged Out No long er eligible based on patient's age to complete this topic Insurance BLUE CROSS [place] MEDICARE OUT OF NETWORK Care Teams Sustain Engineer Relationship Specialty Start Date End Date César Gordon MD [address] [place] [address] [place] [address] PCP - General Family Medicine 04/24/25
--- OUTSIDE RECORDS SUMMARY | 2025-08-02 07:44 | XMS_ITS | Encounter Summary ---
Author Organization [facility] Address [address] [place] [address] Care Team Providers Care Car Customizer Name Role Phone César Gordon MD Primary Care Provider [phone] Encounter Details Date Type Department Care Team ([facility] st Contact Info) Description 02/28/[address] [facility] - Main Lab [address] [facility] [place] [address] Alen France MD 299 [facility] [address] [place] [address] Encounter for screening for malignant neoplasm of [...] fragments). 03/01/2025 9:09 AM TRINO ASH [place] ([facility] Clinical Information High risk colon cancer surveillance: Personal history of adenomatous colonic polyp 03/01/2025 9:09 AM EDT [facility] Gross Description A. Colon, [...] multiple levels. TS 03/01/2025 9:09 AM EDT [facility] Disclaimer Unless otherwise specified, all tissue is 10% NB formalin fixed and paraffin embedded. 03/01/2025 9:09 AM T [facility] Tissue Colon structure / Unknown 02/27/2025 02/28/2025 8:50 AM EDT us Alen France MD LAB PATHOLOGY ORDERABLES Fi nal Result [facility] [address] [place] [address], documented in this encounter Visit Diagnoses Diagnosis Encounter for screening for malignant neoplasm of colon documented in this encounter Care Teams Car Customizer Relationship Specialty Start Date End Date César Gordon MD [address] [place] [address] Dr [place] PCP - General Family Medicine 11/24/24 documented as of this encounter
--- OUTSIDE RECORDS SUMMARY | 2025-08-02 07:44 | XMS_ITS | Encounter Summary ---
Author Organization [facility] Address [address] [place] [address] Care Team Providers Care Grinding Operator Name Role Phone César Gordon MD Primary Care Provider [phone]- [phone] Encounter Details Date Type Department Care Team (Late st Contact Info) Description 04/24/2025 Scanned Document [facility] [address] [place] [id number] Jered Stephen MD [address] [place] [id number] Social History Tobacco Use Types Packs/Day Years [...] Orientation Heterosexual (straight) 03/27 1:26 PM EDT documented as of this encounter Plan of Treatment Not on file documented as of this encounter Visit Diagnoses Not on filedocumented in this encounter Care Teams Grinding Operator Relationship Specialty Start Date End Date César Gordon MD [address] [place] [address] [place] [address] PCP - General Family Medicine 04/24/25 documented as of this encounter
[2025-08-02 11:50] LABS: MANUAL DIFF FLAG NO
[2025-08-02 12:09] LABS: Hematocrit 45.5 % (42.0-52.0); Hemoglobin 14.3 g/dl (14.0-18.0); Imm Gran Abs Auto 0.03 X10*3/uL (0.00-0.03); Imm Gran Pct Auto 0.5 % (0.0-0.4); Lymphocytes Absolute Auto 1.7 X10*3/uL (1.2-4.9); Mean Corpuscular HGB Conc 31.4 g/dl (31.0-36.0); Mean Corpuscular Hemoglobin 26.6 pg (27.0-33.0); Mean Corpuscular Volume 84.7 fL (80.0-98.0); NRBC Abs Auto 0.000 X10*3/uL (0.0-0.012); NRBC Pct Auto 0.0 /100WBC (0.0-0.2); Platelet Count 212 X10*3/uL (160-400); Red Blood Count 5.37 X10*6/uL (4.60-5.80); White Blood Count 5.6 X10*3/uL (4.8-10.8)
[2025-08-02 12:20] LABS: Appearance Urine Clear; Glucose Urine UA Negative (Negative); PH 7.5 (5.0-9.0); Specific Gravity - Urine <= 1.005 (1.005-1.025)
[2025-08-02 12:50] LABS: Anion Gap 8 (12-20)
[2025-08-02 12:55] LABS: Alanine Aminotransferase 22 U/L (0-40); Albumin Level 4.2 g/dL (3.5-5.0); Alkaline Phosphatase 62 U/L (39-117); Aspartate Amino Transferase 29 U/L (5-37); Blood Urea Nitrogen 13 mg/dL (9-16); Calcium 8.8 mg/dL (8.4-10.2); Carbon Dioxide 31 mmol/L (22-29); Chloride 104 mmol/L (96-108); Cholesterol 155 mg/dL (<200); Estimated Glomerular Filt Rate > 60; HDL Cholesterol 46 mg/dL (>40); Potassium 4.2 mmol/L (3.3-5.1); Sodium 139 mmol/L (135-145); Total Protein 6.7 g/dL (6.5-8.0); Triglycerides 82 mg/dL (<150)
== END 2025-08-02 07:39 | disposition home or self-care (01) ==
LOC: HO.WFDLDS 07:38
PROVIDERS: Visit Provider Family Medicine
DX: Z00.00 Encounter for general adult medical examination without abnormal findings (principal); E78.00 Pure hypercholesterolemia, unspecified; I10 Essential (primary) hypertension; Z12.5 Encounter for screening for malignant neoplasm of prostate
CPT/HCPCS: 36415; 80053; 80061; 81003; 82043; 82570; 84153; 84443; 85025

== ENCOUNTER 2025-08-09 16:15 | Outpatient (AMB) | payer MEDICARE, SELFPAY ==
--- NOTE | 2025-08-09 16:05 | A.OFFPC_ITS ---
Intake Visit Reasons: F/U Pre Physical / Labs Intake Note: patient here for Telehealth follow up for pre physical and labs Cae Engineer Required: No Allergies codeine Adverse Reaction (Mild, Verified 08/09/25 16:06) Vomiting Tobacco use date assessed: 08/09/25 Fall risk assessment: No Falls in past year Last assessed Fall Risk: 08/09/25 Dental Screening Dental Screen Date: 08/09/25 Did you have a dental visit in the last 12 months?: Yes Did you have a dental problem in the last 6 months where you did not have access to dental care?: No Was dental information given to patient?: Patient has dentist HPI F/U Pre Physical / Labs HPI Details 70 y/o male presents to f/u labs via tel emed. Labs drawn 08/02/25. Reviewed labs with pt. Triglycerides 82. TC 155. LDL 93. HDL 46. He is on Zetia 10mg daily. PSA 3.82. HPI Comments History of Present Illness Details Documentation assistance for César Gordon MD, was provided by Julien Seo, Die Cutter on 08/09/2025 at 4:43 PM EST. I, Dr. Gordon, have read, observed, and verified documentation. [facility] Medical History (Updated 09/20/24 @ 09:21 by Julien Seo) Arthritis Prostate troubles Skin cancer Surgical History (Updated 03/14/24 @ 10:22 by Jennifer Angulo [facility]) History of hip surgery S/P hernia surgery Family History (Updated 03/14/24 @ 10:26 by Jennifer Angulo [facility]) Mother Lung cancer Father High blood pressure High cholesterol Cardiovascular disease Sister High blood pressure High cholesterol Diabetes Cardiovascular disease Thyroid disease Alcoholism Lung cancer Vocal cord cancer Brother Bladder cancer Social History (Updated 06/16/24 @ 08:50 by [facility] Household Members: Spouse Household Members Other:: mother in law Both parents involved: No Caregiver staying overnight: No Housing: House Are you a primary medicare insurance specialist to a significant other at home: No Do you presently have visiting nurse or other home services: No Alcohol intake: never Patient Tobacco Use Status: Former Tobacco user Tobacco use type: Cigarette e-Cigarette/Vaping Use: Never Used Special tenzin needs: Yes service: No Current occupational status: retired Current occupational exposures/hazards: No Cognitive needs: No Hearing needs: No Vision needs: Yes (Patient wears glasses) Questionnaire Thrive Questionnaire Date Thrive assessed: 03/07/25 MEENA-7 AMB Questionnaire MEENA-7 Date MEENA - 7 assessed: 03/07/25 Source: Developed by Drs. Darien Schwartz, Michela Napier, Hu Moreland and colleagues, with an educational kamron from [employer]. Review of Systems Const Denies chills, Denies fatigue, Denies fever(s), Denies headache(s) and Denies weakness ENT Denies dizziness and Denies headache(s) Card Denies dyspnea Resp Denies cough, Denies dyspnea, Denies wheezing and Denies other (shortness of breath) Musc Denies numbness and Denies tingling Neuro Denies dizziness, Denies headache(s), Denies numbness, Denies tingling and Denies weakness Psych Denies anxiety and Denies depression Endo Denies fatigue Aller/Immun Denies wheezing Physical exam (Primary Care) Tobacco/Smoking Status: Tobacco use Status Tobacco use date assessed 08/09/25 08/09/25 16:07 Patient Tobacco Use Status Former Tobacco user 08/09/25 16:07 Tobacco use type Cigarette 08/09/25 16:07 e-Cigarette/Vaping Use Never Used 08/09/25 16:07 Thrive Assessment: Date of Thrive Assessment Date Thrive assessed 03/07/25 08/09/25 16:07 Telehealth Telehealth Telehealth Platform: Telephone Location of provider rendering services: practice address Location of patient: address on file Patient Identification confirmed using: Name, : Yes Telehealth method: voice only Patient verbally consented to treatment: Yes Patient verbally consented to billing insurance company: Yes Patient informed of any privacy concerns related to visit: Yes Minutes spent on Phone/Video with Pt.: 5 Coding Level of Care Code Tele Est Pt Level 2 (79639) Diagnoses Hyperlipidemia E78.5 Screening for prostate cancer Z12.5 Assessment & Plan Assessment & Plan (1) Hyperlipidemia: Code(s): E78.5 - Hyperlipidemia, unspecified Category: Medical Plan: Lipids are well controlled on Zetia Continue current medication (2) Screening for prostate cancer: Code(s): Z12.5 - Encounter for screening for malignant neoplasm of prostate Category: Medical Plan: Some urinary hesitancy PSA had spiked with testing at his urologist but is within normal range currently. He is taking tamsulosin as prescribed by Urology and they are following him Plan Patient has a cervical osteophyte and has some reflux when swallowing. ENT as given him famotidine and he will follow-up with them as recommended.
--- OUTSIDE RECORDS SUMMARY | 2025-08-09 16:39 | XMS_ITS | Clinical Summary ---
Author Organization [facility] Address [address] [place] [address] Care Team Providers Care Job Trainer Name Role Phone César Gordon MD Primary Care Provider [phone]- [phone] Allergies Active Allergy Reactions Criticality Noted Date [...] Description 07/25/2025 7:30 AM EDT Office Visit [facility] [address] [place] [address] Jered Stephen MD Dysphonia (Primary [...] MGD MEDICARE OUT OF NETWORK Care Teams Job Trainer Relationship Specialty Start Date End Date César Gordon MD [address] [place] [address] [place] [address] PCP - General Family Medicine 04/24/25
--- OUTSIDE RECORDS SUMMARY | 2025-08-09 16:39 | XMS_ITS | Clinical Summary ---
Author Organization [facility] 299 [facility] Address [address] [place] [address] Phone Care Team Providers Care Paper Rewinder Operator Name Role Phone César Gordon MD [...] Most Recently [place] [id number] [employer] - [place] MEDICARE ADVANTAGE Care Teams Paper Rewinder Operator Relationship Specialty Start Date End Date César Gordon MD [address] [place] [address] Dr Pabony[place]SAE PCP - General Family Medicine 11/24/24
--- OUTSIDE RECORDS SUMMARY | 2025-08-09 16:39 | XMS_ITS | Encounter Summary ---
Author Organization [facility] Address [address] [place] [address] Care Team Providers Care Medical Esthetician Name Role Phone César Gordon MD Primary Care Provider [phone]- [phone] Encounter Details Date Type Department Care Team (Late st Contact Info) Description 04/24/2025 Scanned Document [facility] [address] [place] [phone] Jered Stephen MD [address] [place] [address] Social History Tobacco Use Types Packs/Day Years [...] on filedocumented in this encounter Care Teams Medical Esthetician Relationship Specialty Start Date End Date César Gordon MD [address] [place] [address] [place] [address] PCP - General Family Medicine 04/24/25 documented as of this encounter
--- OUTSIDE RECORDS SUMMARY | 2025-08-09 16:39 | XMS_ITS | Encounter Summary ---
Author Organization [facility] Address [address] [place] [address] Care Team Providers Care Mixing Operator Name Role Phone César Gordon MD Primary Care Provider [phone] Encounter Details Date Type Department Care Team ([facility] st Contact Info) Description 02/28/2025 Lab Requisition [facility] - Main Lab 299 [facility] [place] [address] Alen France MD 299 [facility] [address] [place] [address] Encounter for screening for malignant neoplasm of [...] fragments). 03/01/2025 9:09 AM TRINO ASH [place] ([facility]) [facility] Clinical Information High risk colon cancer surveillance: Personal history of adenomatous colonic polyp 03/01/2025 9:09 AM EDT [facility] Gross Description A. Colon, [...] multiple levels. TS 03/01/2025 9:09 AM EDT [facility] Disclaimer Unless otherwise specified, all tissue is 10% NB formalin fixed and paraffin embedded. 03/01/2025 9:09 AM T [facility] Tissue Colon structure / Unknown 02/27/2025 02/28/2025 8:50 AM EDT us Alen France MD LAB PATHOLOGY ORDERABLES Fi nal Result [facility] [address] [place] [address], documented in this encounter Visit Diagnoses Diagnosis Encounter for screening for malignant neoplasm of colon documented in this encounter Care Teams Mixing Operator Relationship Specialty Start Date End Date César Gordon MD [address] [place] [address] Dr [place] PCP - General Family Medicine 11/24/24 documented as of this encounter
== END 2025-08-09 17:05 | disposition home or self-care (01) ==
LOC: HO.HMCFM 16:15
PROVIDERS: PCP Family Medicine; Visit Provider Family Medicine
DX: E78.5 Hyperlipidemia, unspecified (principal); Z12.5 Encounter for screening for malignant neoplasm of prostate

== ENCOUNTER 2025-09-12 10:46 | Outpatient (AMB) | payer MEDICARE, SELFPAY ==
--- NOTE | 2025-09-12 11:14 | MHC.PC.OV ---
Vital Signs 09/12/25 11:17 Height 6 ft Weight 206 lb 2 oz BMI 28.0 BP 100/68 Blood Pressure Location Rt brachial Position Sitting Respiration 14 Pulse 59 Pulse Source Pulse Oximeter Temp 98 F Temp Source Temporal Artery Scan Pulse Oximetry (%) 96 Oxygen Delivery Method Room Air Intake Visit Reasons: Physical Intake Note: Milan presents in the office today for his physical. Allergies codeine Adverse Reaction (Mild, Verified 09/12/25 11:16) Vomiting Tobacco use date assessed: 09/12/25 Fall risk assessment: No Falls in past year Last assessed Fall Risk: 09/12/25 Dental Screening Dental Screen Date: 09/12/25 Did you have a dental visit in the last 12 months?: Yes Did you have a dental problem in the last 6 months where you did not have access to dental care?: No Was dental information given to patient?: Patient has dentist HPI Physical HPI Details 70 y/o male presents for a CPE with f/u labs, health maint. Had already reviewed labs last office visit. [facility] Medical History (Updated 09/12/25 @ 11:44 by César Gordon MD) Arthritis Prostate troubles Skin cancer Surgical History (Updated 03/14/24 @ 10:22 by Jennifer Angulo CMA) History of hip surgery S/P hernia surgery Family History Mother Lung cancer Father High blood pressure High cholesterol Cardiovascular disease Sister High blood pressure High cholesterol Diabetes Cardiovascular disease Thyroid disease Alcoholism Lung cancer Vocal cord cancer Brother Bladder cancer Social History (Updated 09/12/25 @ 11:17 by Lisa Barrow CMA) Household Members: Spouse Household Members Other:: mother in law Both parents involved: No Caregiver staying overnight: No Housing: House Are you a primary career technical counselor to a significant other at home: No Do you presently have visiting nurse or other home services: No Alcohol intake: never Patient Tobacco Use Status: Former Tobacco user Tobacco use type: Cigarette e-Cigarette/Vaping Use: Never Used Second Hand Smoke Exposure: No Special tenzin needs: Yes service: No Current occupational status: retired Current occupational exposures/hazards: No Cognitive needs: No Hearing needs: No Vision needs: Yes (Patient wears glasses) Questionnaire Thrive Questionnaire Date Thrive assessed: 02/28/25 I am a: Patient What is your living situation today?: I have a steady place to live Within the past 12 months, did the food you bought not last and you didn't have the money to get more?: Never true Within the past 12 months, did you worry whether your food would run out before you got money to buy more?: Never true Do you have trouble paying for medicines?: No Do you have trouble getting transportation to medical appointments?: No Do you have trouble paying your heating and electricity bill?: No Do you have trouble taking care of your child, family member or friend?: No Do you have trouble with day-to-day activities such as bathing, preparing meals, shopping, managing finances, etc.?: No Are you currently unemployed and looking for a job?: No Are you interested in more education?: No Please select the resources that you would like help with: None Currently or been in a relationship where the following occur: No concerns reported THRIVE Score: 0 MEENA-7 AMB Questionnaire MEENA-7 Date MEENA - 7 assessed: 03/07/25 Source: Developed by Drs. Darien Schwartz, Michela Napier, Hu Moreland and colleagues, with an educational kamron from [email or web address]. Review of Systems Const Denies chills, Denies fatigue, Denies fever(s), Denies headache(s) and Denies weakness Eyes Denies change in vision ENT Denies dizziness, Denies headache(s), Denies hearing loss, Denies nasal congestion, Denies sinus pain, Denies sinus pressure and Denies sore throat Card Denies chest pain, Denies lightheadedness, Denies dyspnea and Denies other (palpitations) Resp Denies cough, Denies dyspnea and Denies wheezing GI Denies abdominal pain, Denies melena, Denies hematochezia, Denies change in bowel habits, Denies dyspepsia and Denies nausea Denies hematuria and Denies dysuria Musc Denies abnormal gait, Denies myalgias, Denies arthralgias, Denies numbness and Denies tingling Skin/Breast Denies rash, Denies unusual bruising and Denies wounds Neuro Denies abnormal gait, Denies dizziness, Denies headache(s), Denies memory loss, Denies numbness, Denies Sensory deficit (Neuro), Denies tingling and Denies weakness Psych Denies anxiety, Denies depression and Denies memory loss Endo Denies cold intolerance, Denies fatigue, Denies heat intolerance, Denies polydipsia and Denies polyuria Cm/Lymph Denies easy bleeding and Denies easy bruising Aller/Immun Denies wheezing Physical exam (Primary Care) Vital Signs: Last Vital Signs Temp 98 F 09/12/25 11:17 Pulse 59 09/12/25 11:17 Resp 14 09/12/25 11:17 BP 100/68 09/12/25 11:17 Pulse Ox 96 09/12/25 11:17 Oxygen Delivery Method Room Air 09/12/25 11:17 BMI result Body Mass Index 28.0 Tobacco/Smoking Status: Tobacco use Status Tobacco use date assessed 09/12/25 09/12/25 11:22 Patient Tobacco Use Status Former Tobacco user 09/12/25 11:17 Tobacco use type Cigarette 09/12/25 11:17 e-Cigarette/Vaping Use Never Used 09/12/25 11:17 Thrive Assessment: Date of Thrive Assessment Date Thrive assessed 02/28/25 09/12/25 11:16 Currently or been in a relationship where the following occur: No concerns reported Const General: no acute distress, well developed, alert and awake Nutritional Appearance: well nourished Orientation/consciousness: patient oriented x3 HENMT Head: Yes normocephalic and Yes atraumatic Ears: hearing grossly normal bilaterally and TM's normal bilaterally General nose exam: Normal external nose present and Normal nares present Mouth: Normal oral and palatal mucosa present and moist mucous membranes Teeth and gingiva: dentition normal Throat: Yes posterior oropharynx normal Eyes General: appearance normal, both eyes and all related structures Pupils: Equal, round and reactive pupils present and Pupil accommodation reflex normal EOM: EOMs intact bilaterally Neck Neck: Yes normal visual inspection, Yes no lymphadenopathy and Yes trachea midline Thyroid: Thyroid normal Carotids: no bruits Lymphatic: no lymphadenopathy noted Chest Chest palpation & inspection: normal inspection of the chest Resp Effort & Inspection: normal respiratory effort Auscultation: clear to auscultation bilaterally Cardio Rate: regular rate Rhythm: regular rhythm Heart sounds: S1 normal heart sound present, S2 normal heart sound present, no gallops, no murmurs and no rubs Bruits: no abdominal aortic bruits and no carotid bruits GI Palpation (GI): No Abdominal aortic bruit present, Soft to palpation, nontender, No hepatosplenomegaly present and No Rebound tenderness present Auscultation: normal bowel sounds General: Yes no CVA tenderness Back/Spine/Pelvis Back: no CVA tenderness Cervical Spine: cervical ROM normal and No Cervical spine tenderness Thoracic/Lumbar Spine: thoraco-lumbar ROM normal, No pain with thoraco-lumbar ROM, No thoracic spinal tenderness and No lumbar spinal tenderness Skin Lesions: no lesions Rashes: no rashes Trauma: no lacerations or abrasions Wounds: no wounds Nails: normal Neuro General: patient oriented x3 Cranial nerves: Yes Equal, round and reactive pupils present Cognition (Neuro): normal cognition Gait exam (Neuro): Normal gait present Motor exam (neuro): 5/5 motor strength present throughout Sensory Exam: No Sensory deficit (Neuro) Deep tendon reflexes (DTR's): Right patellar reflex intensity grade: 2+ and Left patellar reflex intensity grade: 2+ Extrem General: Yes normal to inspection and No edema Psych Appearance: grossly normal Affect: normal affect Attitude: cooperative Thought process: Normal thought process present Coding Level of Care Code Est Pt Level 3 (45263) Est Pt Prev Care >65y(63477) Diagnoses Adult general medical exam Z00.00 Screening for colon cancer Z12.11 Screening for prostate cancer Z12.5 Assessment & Plan Assessment & Plan (1) Adult general medical exam: Code(s): Z00.00 - Encounter for general adult medical examination without abnormal findings Category: Medical Plan: 70-year-old male presents for complete physical exam Encouraged healthy diet with active lifestyle and plenty of exercise (2) Screening for colon cancer: Code(s): Z12.11 - Encounter for screening for malignant neoplasm of colon Category: Medical Plan: Followed by Dr. Dudley Up-to-date (3) Screening for prostate cancer: Code(s): Z12.5 - Encounter for screening for malignant neoplasm of prostate Category: Medical Plan: Followed by urology at [facility] Up-to-date Medications: New Pepcid (famotidine) Generic was less effective. Brand Name Only. 40 mg PO DAILY 90 tabs 3RF 90 days NS K21.9 - Gastro-esophageal reflux disease without esophagitis, R13.10 - Dysphagia, unspecified
[2025-09-12 11:17] VITALS: BP 100/68; PULSE 59; RESP 14; TEMP 36.6; O2SAT 96; BMI 28.0
--- OUTSIDE RECORDS SUMMARY | 2025-09-12 12:55 | XMS_ITS | Encounter Summary ---
Author Organization [facility] Address [address] [place] [id number] Care Team Providers Care Business Control Specialist Name Role Phone César Gordon MD Primary Care Provider [phone] Encounter Details Date Type Department Care Team (Late st Contact Info) Description 04/24/2025 Scanned Document [facility] [address] [place] [id number] Jered Stephen MD [address] [place] [id number] Social History Tobacco Use Types Packs/Day Years [...] on filedocumented in this encounter Care Teams Business Control Specialist Relationship Specialty Start Date End Date César Gordon MD [address] [place] [address] [place] [address] PCP - General Family Medicine 04/24/25 documented as of this encounter
--- OUTSIDE RECORDS SUMMARY | 2025-09-12 12:55 | XMS_ITS | Clinical Summary ---
Author Organization [facility] Address [address] [place] [address] Care Team Providers Care Make Up Artist Name Role Phone César Gordon MD Primary Care Provider [phone] Allergies Active Allergy Reactions Criticality Noted Date Comments Codeine Other (See Comments) Low 04/24/2025 Medications ezetimibe (ZeTIA) 10 MG tablet Take 10 mg by mouth. 03/07/2025 Active tamsulosin (FLOMAX) 0.4 MG capsule Take 0.4 mg by mouth nightly. 05/29/2025 Active famotidine (PEPCID) 40 MG tabletIndication s:Gastroesophage al reflux disease without esophagitis Take 1 tablet (40 mg total) by mouth nightly. 30 tablet 5 07/25/2025 Active Active Problems No known active problems Encounters Date Type Department Care Team Description 07/25/2025 7:30 AM EDT Office Visit [facility] [address], [place] [address] Jered Stephen MD Dysphonia (Primary [...] - 2023-2 5 season) 2025 RSV Vaccine 50 years and old er and Patients (1 - 1-dose 75+ series) 2031 Hepatitis B Vaccines Aged Out No long er eligible based on patient's age to complete this topic Insurance BLUE [employer]OSS [employer] MEDICARE OUT OF NETWORK Care Teams Make Up Artist Relationship Specialty Start Date End Date César Gordon MD [address] [place] [address] [place] [id number] PCP - General Family Medicine 04/24/25
--- OUTSIDE RECORDS SUMMARY | 2025-09-12 12:55 | XMS_ITS | Clinical Summary ---
Author Organization [facility] [address] [facility] Address [address] [place] [address] Phone Care Team Providers Care Mid Level Project Manager Name Role Phone César Gordon [...] Most Recently [place] [id number] [employer] MEDICARE ADVANTAGE Care Teams Mid Level Project Manager Relationship Specialty Start Date End Date César Gordon MD [address] [place] [address] Dr [place] PCP - General Family Medicine 11/24/24
--- OUTSIDE RECORDS SUMMARY | 2025-09-12 12:55 | XMS_ITS | Encounter Summary ---
Author Organization [facility] Address [address] [place] [address] Care Team Providers Care Community Service Director Name Role Phone César Gordon MD Primary Care Provider Encounter Details Date Type Department Care Team ([facility] st Contact Info) Description 02/28/[address] [facility] [address] [facility] [place] [address] Alen France MD [address] [facility] [address] [place] [address] Encounter for screening for malignant neoplasm of [...] fragments). 03/01/2025 9:09 AM TRINO ASH [place] ([facility]) [facility] Clinical Information High risk colon cancer surveillance: Personal history of adenomatous colonic polyp 03/01/2025 9:09 AM EDT [facility] Gross Description A. Colon, [...] multiple levels. TS 03/01/2025 9:09 AM EDT [facility] Disclaimer Unless otherwise specified, all tissue is 10% NB formalin fixed and paraffin embedded. 03/01/2025 9:09 AM T [facility] Tissue Colon structure / Unknown 02/27/2025 02/28/2025 8:50 AM EDT us Alen France MD LAB PATHOLOGY ORDERABLES Fi nal Result [facility] [address] [place] [address], documented in this encounter Visit Diagnoses Diagnosis Encounter for screening for malignant neoplasm of colon documented in this encounter Care Teams Community Service Director Relationship Specialty Start Date End Date César Gordon MD [address] [place] [address] Dr [place] PCP - General Family Medicine 11/24/24 documented as of this encounter
== END 2025-09-12 11:43 | disposition home or self-care (01) ==
LOC: HO.HMCFM 10:46
PROVIDERS: PCP Family Medicine; Visit Provider Family Medicine
DX: Z00.00 Encounter for general adult medical examination without abnormal findings (principal); K21.9 Gastro-esophageal reflux disease without esophagitis

== ENCOUNTER → 2025-09-12 10:46 | Outpatient (BNVA) | payer MEDICARE, SELFPAY | PROVIDERS: PCP Family Medicine; Visit Provider Family Medicine | DX: Z00.00 Encounter for general adult medical examination without abnormal findings (principal); K21.9 Gastro-esophageal reflux disease without esophagitis; R13.10 Dysphagia, unspecified | CPT/HCPCS: 99397 ==